=== PATIENT | female | born 1945 | race Caucasian/White ===

== ENCOUNTER 2020-04-26 12:27 | Outpatient (REF) | payer MEDICARE, SELFPAY | END 2020-04-26 12:28 | disposition home or self-care (01) | LOC: HO.LAB 12:27 | PROVIDERS: PCP Internal Medicine; Visit Provider Internal Medicine | DX: Z20.828 Contact with and (suspected) exposure to other viral communicable diseases (principal) | CPT/HCPCS: C9803; U0003 ==

== ENCOUNTER 2022-04-11 09:48 | Outpatient (REF) | payer MEDICARE, SELFPAY ==
[2022-04-11 10:36] LABS: COVID-19 Test Negative (Negative); IDNOW Serial# 16C4AD1C
== END 2022-04-11 09:49 | disposition home or self-care (01) ==
LOC: HO.LAB 09:48
PROVIDERS: Visit Provider Internal Medicine
DX: Z20.822 Contact with and (suspected) exposure to COVID-19 (principal)
CPT/HCPCS: 87635; C9803

== ENCOUNTER 2023-03-18 12:26 | Outpatient (AMB) | payer MEDICARE, SELFPAY ==
--- NOTE | 2023-03-18 12:31 | AM.OFFWIN_ITS ---
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 Intake Note: pt is here for c/o cuts/scrapes on arm/forhead due to fall this morning Patient Tobacco Use Status: Never used Tobacco Allergies No Known Allergies Allergy (Verified 03/18/23 12:54) Medication List - Last Reconciled 03/18/23 by Damian Blackwell MD atorvastatin 40 mg PO DAILY fluticasone furoate-vilanterol 100-25 mcg/dose (Breo Ellipta) 1 ea inhalation DAILY gabapentin 300 mg PO TID hydrochlorothiazide 25 mg PO DAILY lisinopril 30 mg PO DAILY metoprolol tartrate 25 mg PO BID HPI 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 While walking to her shed at home, patient tripped and fell. In the process she has injured her right forearm, left and and has a bruise on the right side of her head. No loss of consciousness. Patient could get up on her own. She is ambulating without assistance. No history of double vision. No nausea or vomiting. PFSH Social History Patient Tobacco Use Status: Never used Tobacco Physical Exam Vital Signs: Last Vital Signs Temp 97.1 F 03/18/23 12:41 Pulse 69 03/18/23 12:41 BP 110/70 03/18/23 12:41 Pulse Ox 98 03/18/23 12:41 Const General: cooperative and healthy appearing Nutritional Appearance: well nourished Orientation/consciousness: patient oriented x3 Limitations: no limitations HEENT Head: Yes normal to inspection Eyes General: appearance normal, both eyes and all related structures Neck Neck: Yes normal visual inspection Chest Chest palpation & inspection: normal palpation of entire chest wall Resp Effort & Inspection: normal respiratory effort Skin Other: Skin: Superficial bruising over the forehead. Right forearm 4 cm wound with peeling of thin skin. Similar for wound on the left hand dorsally. Minimal abrasions over the right and left knee. Neuro General: patient oriented x3 Assessment & Plan Assessment & Plan (1) Head contusion: Code(s): S00.93XA - Contusion of unspecified part of head, initial encounter Plan: Tetanus shot provided. Superficial wounds were covered with antiseptic dressing. CT scan of the head has been scheduled. Orders: Orders CT head/brain wo IV con Today S00.93XA - Contusion of unspecified part of head, initial encounter Coding Level of Care Code New Pt Level 4 (34313) Diagnoses Head contusion S00.93XA
[2023-03-18 12:41] VITALS: BP 110/70; PULSE 69; TEMP 36.2; O2SAT 98
== END 2023-03-18 13:12 | disposition home or self-care (01) ==
PROVIDERS: PCP Internal Medicine; Visit Provider Internal Medicine
DX: S00.93XA Contusion of unspecified part of head, initial encounter (principal); Z23 Encounter for immunization
CPT/HCPCS: 90471; 90715; 99204

== ENCOUNTER 2023-03-20 15:03 | Outpatient (REF) | payer MEDICARE, SELFPAY ==
--- NOTE | ~2023-03-20 | CT_ITS ---
EXAMINATION: CT HEAD WITHOUT CONTRAST CLINICAL INFORMATION: Contusion of unspecified part of the head. COMPARISON: None available. TECHNIQUE: Contiguous axial imaging was performed from the skull base to vertex without intravenous administration of contrast. This CT examination was performed using dose optimization techniques as appropriate, variously including the following: *Automated exposure control *Adjustment of mA and/or kV according to patient size (this includes techniques or standardized protocols for targeted exams where dose is matched to indication/reason for exam; i.e. extremities or head) *Use of iterative reconstruction technique DLP: 691.0 mGy-cm FINDINGS: There is ill-defined patchy hypodensity involving the left middle frontal gyrus at the mancia-white matter intersection. Otherwise, no acute intracranial hemorrhage. The mancia-white matter differentiation is otherwise preserved. No midline shift or hydrocephalus. No acute extra-axial fluid collections. The orbital osseous structures are unremarkable. No orbital pathology. The paranasal sinuses and mastoid air cells are clear. Atherosclerotic calcifications of the bilateral carotid siphons. CT/CT head/brain wo IV con IMPRESSION: Nonspecific ill-defined patchy hypodensity in the left middle frontal gyrus. Differential considerations include edema, acute infarct, and contusion/axonal injury among others. Further evaluation with MRI brain is recommended.
== END 2023-03-20 15:04 | disposition home or self-care (01) ==
LOC: HO.CT 15:03
PROVIDERS: PCP Internal Medicine; Visit Provider Internal Medicine
DX: S00.93XA Contusion of unspecified part of head, initial encounter (principal)
CPT/HCPCS: 70450

== ENCOUNTER 2023-03-31 10:59 | Outpatient (AMB) | payer MEDICARE, SELFPAY ==
--- NOTE | 2023-03-31 12:32 | MHC.OFFWIV ---
Intake Vital Signs 03/31/23 12:33 Weight 148 lb BP 110/60 Blood Pressure Location Rt brachial Position Sitting Pulse 64 Pulse Source Pulse Oximeter Pulse Oximetry (%) 98 Oxygen Delivery Method Room Air Intake Visit Reasons: EST/right leg cat scratch(lobby) Intake Note: Patient here because she was scratched by a cat on friday on the right leg and wants to make sure its not infected. Patient Tobacco Use Status: Never used Tobacco Allergies No Known Allergies Allergy (Verified 03/31/23 12:53) Medication List - Last Reconciled 03/31/23 by Damian Blackwell MD atorvastatin 40 mg PO DAILY fluticasone furoate-vilanterol 100-25 mcg/dose (Breo Ellipta) 1 ea inhalation DAILY gabapentin 300 mg PO TID hydrochlorothiazide 25 mg PO DAILY lisinopril 30 mg PO DAILY meloxicam 15 mg PO DAILY metoprolol tartrate 25 mg PO BID tramadol 50 mg PO BEDTIME Do you need a note to return to daycare/school/sports/work: No HPI EST/right leg cat scratch(lobby) HPI Details 78-year-old female presents to the office for a sick visit. Her own cat jumped on her a few days ago and scratched her right leg. She had significant bleeding. [facility] Social History Patient Tobacco Use Status: Never used Tobacco Physical Exam Vital Signs: Last Vital Signs Pulse 64 03/31/23 12:33 BP 110/60 03/31/23 12:33 Pulse Ox 98 03/31/23 12:33 Oxygen Delivery Method Room Air 03/31/23 12:33 Skin Other: Multiple abrasions over the right leg. They appear healing with minimal tenderness. Assessment & Plan Assessment & Plan (1) Cat scratch: Code(s): W55.03XA - Scratched by cat, initial encounter Plan: Up-to-date on tetanus. Antibiotics called in. If symptoms do not improve to follow-up here. Coding Level of Care Code Est Pt Level 3 (74723) Diagnoses Cat scratch W55.03XA
[2023-03-31 12:33] VITALS: BP 110/60; PULSE 64; O2SAT 98
== END 2023-03-31 13:05 | disposition home or self-care (01) ==
PROVIDERS: PCP Internal Medicine; Visit Provider Internal Medicine
DX: S80.811A Abrasion, right lower leg, initial encounter (principal); W55.03XA Scratched by cat, initial encounter
CPT/HCPCS: 99213

== ENCOUNTER 2023-08-09 09:13 | Outpatient (REF) | payer MEDICARE, SELFPAY ==
[2023-08-09 11:58] LABS: C Reactive Protein 0.27 mg/dL (< or = 0.50); Uric Acid 8.1 mg/dL (2.4-5.7)
[2023-08-09 12:25] LABS: Erythrocyte Sedimentation Rate 23 MM/HR (0-20)
== END 2023-08-09 09:14 | disposition home or self-care (01) ==
LOC: HO.HMGCLDS 09:13
PROVIDERS: PCP Internal Medicine; Visit Provider Podiatrist
DX: M10.072 Idiopathic gout, left ankle and foot (principal)
CPT/HCPCS: 36415; 84550; 85652; 86140

== ENCOUNTER 2023-11-28 12:41 | Emergency (ER) | payer OTHER, MEDICARE, SELFPAY ==
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
--- NOTE | ~2023-11-28 | CT_ITS ---
EXAMINATION: CT CERVICAL SPINE WITHOUT CONTRAST CLINICAL INFORMATION: Neck tenderness. Rule out fracture. COMPARISON: None available. TECHNIQUE: Axial images through the cervical spine without IV contrast. Sagittal and coronal reconstructions on the technologist workstation. This CT examination was performed using dose optimization techniques as appropriate, variously including the following: *Automated exposure control *Adjustment of mA and/or kV according to patient size (this includes techniques or standardized protocols for targeted exams where dose is matched to indication/reason for exam; i.e. extremities or head) *Use of iterative reconstruction technique DLP: 376 mGy-cm FINDINGS: Bone alignment is normal. No fracture or dislocation. Multilevel degenerative changes with degenerative spondylosis and degenerative disc disease greatest at C4-C5, C5-C6 and C6-C7. Prevertebral soft tissues are normal. There is bilateral carotid calcification. Visualization of the lung apices is limited due to motion artifact. There is mild biapical pleural and parenchymal scarring. There is semisolid nodular opacity at the right lung apex measuring 5 mm for example axial image 44 series 15. This appears similar to chest CT from 2021. There is severe calcific atherosclerotic disease of the visualized thoracic aorta. CT/CT cervical spine wo IV con IMPRESSION: Degenerative changes. No fracture or dislocation. Fleischner guidelines were followed.
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
[2023-11-28 12:55] VITALS: BP 110/80; PULSE 88; O2SAT 98
[2023-11-28 13:03] VITALS: BP 152/80; PULSE 94; RESP 18; TEMP 36.9; O2SAT 94; BMI 33.6
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
--- NOTE | 2023-11-28 15:33 | PC.NURSE ---
Pt refuses pain meds, reports pain has subsided and she does not want anything at this time.
[2023-11-28 15:44] VITALS: BP 145/54; PULSE 78; RESP 16; TEMP 36.6; O2SAT 97
[2023-11-28 16:20] VITALS: BP 145/54; PULSE 78; RESP 16; TEMP 36.6; O2SAT 97
== END 2023-11-28 16:21 | disposition home or self-care (01) ==
PROVIDERS: Emergency Provider Emergency Medicine Emergency Medical Services; PCP Internal Medicine
DX: S00.03XA Contusion of scalp, initial encounter (principal); S13.9XXA Sprain of joints and ligaments of unspecified parts of neck, initial encounter; S00.83XA Contusion of other part of head, initial encounter; M54.2 Cervicalgia; R51.9 Headache, unspecified; V43.52XA Car driver injured in collision with other type car in traffic accident, initial encounter; Y93.9 Activity, unspecified; Y92.410 Unspecified street and highway as the place of occurrence of the external cause; Y99.8 Other external cause status
CPT/HCPCS: 70450; 70486; 72125; 99284

== ENCOUNTER 2023-12-01 16:00 | Outpatient (AMB) | payer OTHER, MEDICARE, SELFPAY ==
[2023-12-01 16:04] VITALS: BP 132/80; PULSE 82; TEMP 36.7; O2SAT 98
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
== END 2023-12-01 16:38 | disposition home or self-care (01) ==
PROVIDERS: PCP Internal Medicine; Visit Provider Registered Nurse Emergency
DX: S13.4XXA Sprain of ligaments of cervical spine, initial encounter (principal)
CPT/HCPCS: 99213

== ENCOUNTER 2024-04-29 11:20 | Observation (INO) | payer MEDICARE, SELFPAY ==
[2024-04-29] VITALS (7 sets, daily range): BP systolic 135–186; BP diastolic 52–97; PULSE 66–92; RESP 15–20; TEMP 36.5–36.8; O2SAT 96–99; BMI 33.4
--- NOTE | ~2024-04-29 | CT_ITS ---
CT HEAD WITHOUT IV CONTRAST STROKE CLINICAL INFORMATION: Acute confusion COMPARISON: No prior CT scan available for comparison. TECHNIQUE: Department standard protocol. This CT examination was performed using dose optimization techniques as appropriate, variously including the following: *Automated exposure control *Adjustment of mA and/or kV according to patient size (this includes techniques or standardized protocols for targeted exams where dose is matched to indication/reason for exam; i.e. extremities or head) *Use of iterative reconstruction technique DLP: 580 mGy-cm FINDINGS: CEREBRAL HEMISPHERES: There is area of low attenuation likely sequela of an infarct in the anterior left parietal lobe, refer image 28 series 2, indeterminant age. The age of this infarct cannot be determined by MRI if clinically indicated. No associated intracranial bleed. BRAIN PARENCHYMA: Normal mancia-white matter differentiation. SUBDURAL SPACE: No bleed. BASAL GANGLIA AND PINEAL GLAND: Unremarkable VENTRICLES: Symmetric and normal in size. CEREBELLUM AND BRAINSTEM: No space-occupying mass, hemorrhage or acute infarct. CEREBELLOPONTINE ANGLES: No lesion found. ORBITS: No intraorbital mass. VESSELS: Unremarkable SKULL BASE: Unremarkable INCLUDED SINUSES AT SKULL BASE: Clear SKULL AND SKIN: No fracture or bone lesion found. CT/CT head for stroke IMPRESSION: There is area of low attenuation likely sequela of an infarct in the anterior left parietal lobe, indeterminant age. The age of this infarct cannot be determined by MRI No associated intracranial bleed. No intracranial bleed. (Referring physician staff is being called, by physician staff assistance, to be alerted of the above critical findings and recommendations.) 05/01/2024 2:55 PM [employer] Electronically signed by: Williams Jones MD 05/01/2024 02:57 PM [facility]
--- NOTE | ~2024-04-29 | CT_ITS ---
EXAMINATION: CT ABDOMEN AND PELVIS WITH CONTRAST CLINICAL INFORMATION: Diffuse abdominal pain. Concern for bowel obstruction. COMPARISON: CT abdomen pelvis dated 05/26/2013. TECHNIQUE: Multidetector volumetric images were obtained from the superior aspect of the liver through the pubic symphysis following administration 85 mL of Omnipaque 350 intravenous contrast. Sagittal and coronal reformatted images were obtained on the technologist's workstation. Oral contrast: No This CT examination was performed using dose optimization techniques as appropriate, variously including the following: *Automated exposure control *Adjustment of mA and/or kV according to patient size (this includes techniques or standardized protocols for targeted exams where dose is matched to indication/reason for exam; i.e. extremities or head) *Use of iterative reconstruction technique DLP: 563 mGy-cm FINDINGS: LUNG BASES: There is scarring versus dependent atelectasis at the right lung base. No pleural effusion. Heart size is normal. No pericardial effusion. LIVER, GALLBLADDER, AND BILIARY TREE: The liver is normal in size, shape, and attenuation. No focal hepatic lesion or biliary ductal dilatation is present. The gallbladder is unremarkable with no evidence of radiopaque gallstones, gallbladder wall thickening, or obvious pericholecystic inflammatory changes. PANCREAS: Unremarkable. SPLEEN: Unremarkable. ADRENAL GLANDS: Unremarkable. KIDNEYS AND URETERS: The kidneys are normal in size, shape, and attenuation. No hydronephrosis or hydroureter. There is a 1.7 mm calculus within the lower pole of the right kidney. There is an 8 mm low-attenuation lesion within the left kidney, likely a cyst. There is nonspecific, mild bilateral perinephric stranding. BLADDER: Unremarkable. GASTROINTESTINAL TRACT: There is a small hiatal hernia. The small and large bowel are normal in caliber. There is sigmoid colon diverticulosis. There is no pericolonic inflammatory stranding. The appendix is unremarkable. There is no free fluid within the abdomen. ABDOMINAL WALL: No significant hernia is appreciated. LYMPH NODES: No lymphadenopathy. VASCULAR: No abdominal aortic aneurysm. There is extensive calcific atherosclerotic disease throughout the aorta and iliac arteries. PELVIC VISCERA: Unremarkable. OSSEOUS STRUCTURES: There are significant degenerative changes of the lumbar spine. CT/CT abdomen pelvis w IV con IMPRESSION: No acute intra-abdominal/intrapelvic abnormality. Nonobstructive right renal calculus. No evidence of bowel obstruction. Sigmoid colon diverticulosis. Fleischner guidelines were followed. Electronically signed by: Tien Hess DO 04/29/2024 04:38 PM [facility]
--- NOTE | ~2024-04-29 | XR_ITS ---
EXAMINATION: XR CHEST CLINICAL INFORMATION: Chest pain. COMPARISON: None available. TECHNIQUE: 2 views of the chest were obtained. FINDINGS: Pulmonary reticular pattern, bilaterally. No hyperinflation. No consolidation, pleural effusion or pneumothorax. Cardiomediastinal silhouette demonstrates calcified plaque aortic arch. Multilevel thoracic spondylosis. XR/XR chest 2V IMPRESSION: Chronic interstitial lung disease. Electronically signed by: Paulo Hills MD 04/29/2024 12:35 PM EST
--- NOTE | ~2024-04-29 | CT_ITS ---
EXAMINATION: CTA NECK WITH CONTRAST (STROKE) CTA BRAIN WITH CONTRAST (STROKE) CLINICAL INFORMATION: Suspect acute stroke. Assess for major vessel occlusion. COMPARISON: Concurrently performed head CT TECHNIQUE: CTA of the head and neck was performed in the axial plane from the mediastinum to the skull vertex using 70 mL Omnipaque 350 intravenous contrast. Additional reformatted multiplanar images including maximum intensity projection MIP images are generated on the CT workstation. This CT examination was performed using dose optimization techniques as appropriate, variously including the following: *Automated exposure control *Adjustment of mA and/or kV according to patient size (this includes techniques or standardized protocols for targeted exams where dose is matched to indication/reason for exam; i.e. extremities or head) *Use of iterative reconstruction technique DLP: 1297 mGy-cm FINDINGS: CTA Head: Atherosclerotic calcified plaque is noted involving the cavernous and supraclinoid portions of the internal carotid arteries, without significant stenosis. The anterior and middle cerebral arteries are patent with normal contrast enhancement and branching pattern. There is a normal anterior communicating artery complex. The vertebral and basilar arteries demonstrate normal enhancement without stenosis or occlusion. The posterior cerebral arteries have a normal caliber and branching pattern. There is a origin of both posterior cerebral arteries, a normal variant. There is no evidence of stenosis, occlusion, aneurysm or arteriovenous malformation. CTA Neck: Severe atherosclerotic plaque is noted at the aortic arch. 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 There is reconstitution at the takeoff of the left vertebral artery. Moderate atheromatous plaque is noted at the right carotid bulb, without significant stenosis by NASCET criteria. The right common, internal and external carotid arteries are otherwise normal in appearance. Mild atheromatous plaque is noted at the left carotid bulb, without significant stenosis by NASCET criteria. The left common, internal and external carotid arteries are otherwise normal in appearance. The cervical portions of the vertebral arteries demonstrate normal enhancement. There is no evidence of a significant stenosis or a dissection. The visualized soft tissues are unremarkable. The visualized lung is unremarkable. The visualized osseous structures are unremarkable. CT/CT angio head neck stroke IMPRESSION: 1. Occlusion of the proximal left subclavian artery with reconstitution at the takeoff of the left vertebral artery. 2. No additional hemodynamically significant stenosis or occlusion of the head or neck vasculature. Electronically signed by: Flaca Mcclelland MD 05/01/2024 03:33 PM EST RP
--- NOTE | ~2024-04-29 | MR_ITS ---
EXAMINATION: MR BRAIN WITHOUT CONTRAST CLINICAL INFORMATION: Acute change in speech COMPARISON: CTA head and neck on 05/01/24 TECHNIQUE: MRI of the brain was obtained using routine sequences without contrast. FINDINGS: There is mild periventricular and subcortical white matter hyperintensity most likely representing microangiopathic disease. Small region of encephalomalacia in the left frontal lobe. There is no focus of restricted diffusion or abnormal susceptibility artifact within the brain parenchyma. The midline structures including the corpus callosum, cerebellar vermis, and pituitary gland are normal in appearance. There is no acute intracranial hemorrhage, mass, mass effect, or extra-axial fluid collection. There is no midline shift or hydrocephalus. The basal subarachnoid cisterns and cerebral sulci are not effaced. The major intracranial flow voids are present, and grossly unremarkable. MR/MR head/brain wo con IMPRESSION: No acute intracranial abnormality. Electronically signed by: Flaca Mcclelland MD 05/02/2024 08:59 AM [facility]
--- NOTE | ~2024-04-29 | CT_ITS ---
EXAMINATION: CT ANGIOGRAM CHEST CLINICAL INFORMATION: Cough. Rule out PE. COMPARISON: Chest CT dated February 19, 2023. TECHNIQUE: Multiple axial images were obtained through the chest after the administration of 85 mL of Omnipaque 350 intravenous contrast. Extensive vascular post-processing including two-dimensional and three-dimensional reformatted images were created and reviewed on an independent workstation. This CT examination was performed using dose optimization techniques as appropriate, variously including the following: *Automated exposure control *Adjustment of mA and/or kV according to patient size (this includes techniques or standardized protocols for targeted exams where dose is matched to indication/reason for exam; i.e. extremities or head) *Use of iterative reconstruction technique DLP: 373 mGy-cm FINDINGS: The main pulmonary artery is normal in caliber. There are no filling defects within the main pulmonary artery, left pulmonary artery, right pulmonary artery, or lobar pulmonary arteries to indicate an acute pulmonary embolism. Segmental and subsegmental branches are suboptimally evaluated secondary to mixing artifact. The trachea and central airways are widely patent. There is no consolidation within either lung. There is scarring versus atelectasis at the right lung base. There is no pleural effusion. No pneumothorax. The heart is normal in size. There is no pericardial effusion. There are coronary artery calcifications. There is no thoracic aortic aneurysm. There is calcific atherosclerotic disease of the aorta. There is no mediastinal or hilar adenopathy. There is no axillary lymphadenopathy. There is a small hiatal hernia. Remaining visualized upper abdominal structures are normal in appearance. There are degenerative changes of the thoracic spine. CT/CT angio chest PE protocol IMPRESSION: No pulmonary embolism is identified. No consolidation within either lung. No pleural effusion or pneumothorax. Fleischner guidelines were followed. Electronically signed by: Tien Hess DO 04/29/2024 04:57 PM EST
--- NOTE | 2024-04-29 11:30 | ED.GENADULT ---
HPI - General Adult General Chief complaint: Weakness Stated complaint: Pneumonia, abd pain Time Seen by Provider: 04/29/24 14:20 Source: patient Mode of arrival: ambulatory Limitations: no limitations History of Present Illness ED Provider: TAMIKO LUA PA-C HPI narrative: 79 year old female with pmhx significant for HTN, HDL, arthritis presents to the ED today for evaluation of multiple concerns. Patient was initially evaluated at [facility] 4 days ago for right lower abdominal pain. She was found to have a blockage and was discharged home same day with cefuroxime. Later that evening, she began to develop nausea and vomiting. Reports her emesis appears coffee-ground like. Last episode of vomiting was 2 days ago. Reports that after starting the cefuroxime, she began to develop multiple episodes of diarrhea. Her stool is dark in color which is not her normal. Denies iron supplementation or Pepto-Bismol use. Not on anticoagulation however does take a baby aspirin daily. She was evaluated at [facility] again 2 days ago for evaluation of persistent cough x3 days. No sputum production. Reports associated chest discomfort that has constant. Admits she is very sedentary during the day. Denies recent travel or long car rides. Denies hemoptysis. Denies palpitations. She was diagnosed with pneumonia via CXR and discharged home with zoran. Presents today with continued cough, chest discomfort, nausea, diarrhea and abdominal pain. No further episodes of vomiting. Related Data Home Medications ?Medication ?Instructions ?Recorded ?Confirmed atorvastatin 40 mg tablet 40 mg PO DAILY 03/18/23 04/29/24 gabapentin 300 mg capsule 600 mg PO BEDTIME 03/18/23 04/29/24 metoprolol tartrate 25 mg tablet 25 mg PO BID 03/18/23 04/29/24 aspirin 81 mg tablet,delayed 81 mg PO MOWEFR 12/01/23 04/29/24 release lisinopril 10 1 tab PO DAILY 12/01/23 04/29/24 mg-hydrochlorothiazide 12.5 mg tablet acetaminophen 325 mg tablet 650 mg PO DAILY PRN Pain 04/29/24 04/29/24 albuterol sulfate 90 mcg/actuation 1 inh inhalation QID PRN Shortness 04/29/24 04/29/24 aerosol inhaler (Ventolin HFA) Of Breath Or Wheezing azithromycin 250 mg tablet 250 mg PO DIRECTED 04/29/24 04/29/24 cefpodoxime 100 mg tablet 100 mg PO BID 04/29/24 04/29/24 fluticasone furoate 100 1 ea inhalation DAILY 04/29/24 04/29/24 mcg-vilanterol 25 mcg/dose inhalation powder (Breo Ellipta) gabapentin 300 mg capsule 300 mg PO DAILY 04/29/24 04/29/24 methylprednisolone 4 mg tablets in See Rx Instructions .Route .COMPLEX 04/29/24 04/29/24 a dose pack tramadol 50 mg tablet 50 mg PO BID PRN pain 04/29/24 04/29/24 Allergies Allergy/AdvReac Type Severity Reaction Status Date / Time No Known Allergies Allergy Verified 04/29/24 11:33 Review of Systems Review of Systems: Constitutional: No fever, chills, fatigue, night sweats, weight changes ENT/Mouth: No ear pain, hearing loss, nasal congestion, sinus pain, rhinorrhea, sore throat Eyes: No eye pain, swelling, redness, vision changes, discharge Cardio: No chest pain, palpitations, ROMO, orthopnea, peripheral edema Pulm: No SOB, cough, sputum, wheezing, dyspnea, hemoptysis, +cough GI: No hematemesis, constipation, hematochezia, +melena, +diarrhea, +coffee ground emesis : No irregular bleeding, dysuria, frequency, urgency, hesitancy, hematuria, flank pain, urinary flow changes, urinary incontinence or retention MSK: No back pain, neck pain, joint pain, myalgias Skin: No lesions, rashes Neuro: No weakness, numbness, paresthesias, LOC, dizziness, headache Psych: No anxiety/panic, depression, SI/HI, AH/VH All other systems reviewed and are negative. [facility] Past Medical History Attestation statement: The following information was validated with the patient. Source: old records reviewed and nursing notes reviewed Social History Social History Patient Tobacco Use Status: Never used Tobacco Smoked in Last 30 Days: Yes Use of substances other than those prescribed or required for medical reasons: No Advance Directives: No Advance Directives Information Provided: Yes Physical Exam ED Vital Signs: Vital Signs - 24 hr 04/29/24 11:30 04/29/24 13:54 04/29/24 14:24 Temperature 98.3 F Pulse Rate 92 82 66 Respiratory Rate 20 16 15 Blood Pressure 172/74 H 185/97 H 186/53 H Pulse Oximetry 98 99 97 Oxygen Delivery Method Room Air Room Air Room Air 04/29/24 15:57 04/29/24 18:28 04/29/24 20:08 Temperature 97.7 F Pulse Rate 72 81 91 Respiratory Rate 16 18 17 Blood Pressure 135/54 L 174/52 H 138/67 Pulse Oximetry 97 96 97 Oxygen Delivery Method Room Air Room Air Room Air BMI result Body Mass Index 33.4 vital signs stable General: Well appearing, in no acute distress. Skin: Warm, dry, intact. No rashes or lesions. Head: Normocephalic, atraumatic. EENT: Hearing is intact b/l. Conjunctiva clear. PERRLA. EOM intact. Moist mucous membranes.? Neck: Supple without LAD? Cardiac: Chest wall symmetric. RRR Lungs: Normal respiratory effort without accessory muscle use. CTA bilaterally. No rales, rhonchi, or wheezes.? Abdomen: abdomen soft, nondistended, TTP of epigastric region with voluntary guarding. no rebound tenderness. normoactive bs x4. Rectal exam performed with Blaire RAMESH present in room to test design engineer. Normal rectal sphincter tone. No external masses or lesions. Palpable soft stool in rectal vault. Stool is dark in appearance. OBS positive. Back: No midline spinous or paraspinal tenderness. No step off deformity. Ext: Upper and lower extremities atraumatic, without tenderness, deformity, swelling or erythema. Full ROM throughout. Neuro: AOx3. Normal speech. Ambulating with steady gait. Psych: Appropriate mood and affect. Responds appropriately to questions. Course Course Course Narrative: This is an RME: Additional HPI, ROS, PE not included below will be deferred to primary provider. RME assessment and note performed by: Ema Timmons PA-C This is a [id number]-female, with a past medical history of hypertension, hyperlipidemia, arthritis on aspirin, who presents to the ER with complaints of multiple complaints. Patient states that on FridayApril 25, patient was seen at [facility] after having a ?blockage?, she states that she was discharged on laxatives that same day. She states that later on that evening she developed vomiting. She states that there were episodes that were coffee-ground like in appearance. She states that she was then seen on [facility] again on Friday as she was not feeling well, and she was diagnosed with pneumonia. She was discharged on 2 types of antibiotics which she has been taking however notes no improvement. She reports that she is now having diarrhea. She has not had any episodes of coffee-ground vomit since Friday. She is not on anticoagulation, she does admit to taking a baby aspirin daily. Plan: Labs, EKG, chest x-ray, further ER evaluation needed. Reevaluation(s) Reevaluation #1: 1426 -- CBC with leukocytosis to 15.8 without left shift. This may be secondary to vomiting. Chemistry without acute electrolyte abnormality requiring intervention. BUN elevated at 31. Creatinine WNL. Random glucose 124. Normal liver function. Troponin elevated at 52.8 > no history of VA. Will repeat for delta to r/o ACS. EKG showing normal sinus rhythm with a rate of 78 beats per minute, no acute ischemic changes or ST elevations. BNP WNL. Chest x-ray showing chronic interstitial lung disease. No effusion, infiltrate or consolidation. No pneumothorax. > OBS, CT abd, and CTA chest pending. Medications Administered Discontinued Medications Generic Name Dose Route Start Last Admin Trade Name Freq PRN Reason Stop Dose Admin Iohexol 85 ml 04/29/24 15:12 04/29/24 15:12 Iohexol 350 Mg/Ml 100 Ml Infus..Btl IV 04/29/24 15:13 85 ml ONCE ONE Administration Pantoprazole Sodium 40 mg 04/29/24 14:44 04/29/24 14:55 Pantoprazole Sodium 40 Mg/10 Ml Vial IVPUSH 04/29/24 14:45 40 mg ONCE ONE Administration Medical Decision Making Medical Decision Making MDM Narrative: 79 year old female with pmhx significant for HTN, HDL, arthritis presents to the ED today for evaluation of multiple concerns. Vital signs stable. afebrile. she is not hypoxic, not tachycardic. she is nontoxic appearing and in NAD. holding emesis bag, no active vomiting. abdomen is soft, nondistended, ttp of epigastric region with voluntary guarding, no rebound. normoactive bs x4. Normal rectal sphincter tone. No external masses or lesions. Palpable soft stool in rectal vault. Stool is dark in appearance. OBS positive. no CVAT. skin w/d/i. no increased effort of breathing. no tripoding. bronchospastic cough. lungs are clear. Differential diagnosis includes gastritis, PUD, diverticulitis vs diverticulosis, colitis, SBO, ileus. Concern for viral syndrome, pneumonia, ACS, arrhtyhmia, PE. Labs, viral serology, OBS, CXR, ekg ordered from triage. PERC 1 > given elevated troponin, will at on CTA chest to r/o PE and CT abd/pelvis to assess for bleed vs obstruction. Differential Diagnosis Differential Diagnoses: The differential diagnosis associated with the presentation includes as above Admission/Observation Consideration of admission/observation: Escalation of care including admission/observation considered Patient to bed admitted to medicine for GI bleed Consult Healthcare Provider Management of the patient was discussed with: Hospitalist (Dr. Clarke) Lab Data MDM Lab Attestation statement: I reviewed the patient's lab results. as above 04/29/24 12:02 04/29/24 12:02 Labs: Lab Results 04/29/24 04/29/24 Range/Units 12:02 14:48 WBC 15.8 H (4.8-10.8) X10*3/uL RBC 5.35 (4.20-5.50) X10*6/uL Hgb 16.0 (12.0-16.0) g/dl Hct 46.4 (37.0-47.0) % MCV 86.7 (80.0-98.0) fL MCH 29.9 (27.0-33.0) pg MCHC 34.5 (31.0-35.0) g/dl RDW 12.7 (11.0-16.0) % Plt Count 278 (160-400) X10*3/uL MPV 10.3 (9.4-12.3) fL Immature Gran % (Auto) 0.6 H (0.0-0.4) % Neut % (Auto) 78.5 H (45-73) % Lymph % (Auto) 8.0 L (20-40) % Baker % (Auto) 12.2 H (2-11) % Eos % (Auto) 0.3 (0-4) % Baso % (Auto) 0.4 (0-2) % Lymph # (Auto) 1.3 (1.2-4.9) X10*3/uL Baker # (Auto) 1.9 H (0.1-1.2) X10*3/uL Eos # (Auto) 0.0 (0.0-0.4) X10*3/uL Baso # (Auto) 0.1 (0.0-0.2) X10*3/uL Abs Immat Gran (auto) 0.10 H (0.00-0.03) X10*3/uL Absolute Neuts (auto) 12.4 H (2.0-8.3) x10*3/uL Absolute Nucleated RBC 0.000 (0.0-0.012) X10*3/uL Nucleated RBC % (auto) 0.0 (0.0-0.2) /100WBC Smear Tech's Comments VERIFIED PT 10.9 (10.9-12.4) SEC INR 0.9 (0.9-1.1) Hold Blue Top SEE NOTE Sodium 137 (135-145) mmol/L Potassium 3.5 (3.3-5.1) mmol/L Chloride 100 (96-108) mmol/L Carbon Dioxide 26 (22-29) mmol/L Anion Gap 15 (12-20) BUN 31 H (9-16) mg/dL Creatinine 0.90 (0.5-1.4) mg/dL Estim Creat Clear Calc 40.3 Estimated GFR > 60 Random Glucose 124 H (60-115) mg/dL Calcium 10.4 H (8.4-10.2) mg/dL Magnesium 2.3 (1.6-2.6) mg/dL Total Bilirubin 0.7 (0.0-1.0) mg/dL Direct Bilirubin 0.3 (0.0-0.5) mg/dL AST 28 (5-31) U/L ALT 18 (0-31) U/L Alkaline Phosphatase 79 (39-117) U/L Troponin I High Sens 52.8 H* 62.2 H* (<3.5-17.0) ng/L B-Natriuretic Peptide 79 (<100) pg/mL Total Protein 7.2 (6.5-8.0) g/dL Albumin 4.1 (3.5-5.0) g/dL Lipase 15 (8-78) U/L Stool Occult Blood POSITIVE (NEGATIVE) Influenza Type A (PCR) NEGATIVE (Negative) Influenza Type B (PCR) NEGATIVE (Negative) RSV RNA Qual (PCR) NEGATIVE (Negative) SARS-CoV-2 RNA (RT-PCR) NEGATIVE (Negative) Independent Interpretation I performed an independent interpretation of an: EKG, Plain X-Ray and CT Scan Interpretation: CT angio chest without PE CT abdomen without obstruction CXR without focal infiltrate or consolidation EKG with NSR, rate 78 bpm, no acute ischemic changes or ST elevations Radiology Impression Discussion of test interpretation with radiology: I have reviewed the radiologist's reading. Radiologist Impression: EXAMINATION: XR CHEST CLINICAL INFORMATION: Chest pain. COMPARISON: None available. TECHNIQUE: 2 views of the chest were obtained. FINDINGS: Pulmonary reticular pattern, bilaterally. No hyperinflation. No consolidation, pleural effusion or pneumothorax. Cardiomediastinal silhouette demonstrates calcified plaque aortic arch. Multilevel thoracic spondylosis. XR/XR chest 2V IMPRESSION: Chronic interstitial lung disease. Electronically signed by: Paulo Hills MD 04/29/2024 12:35 PM [facility] EXAMINATION: CT ANGIOGRAM CHEST CLINICAL INFORMATION: Cough. Rule out PE. COMPARISON: Chest CT dated February 19, 2023. TECHNIQUE: Multiple axial images were obtained through the chest after the administration of 85 mL of Omnipaque 350 intravenous contrast. Extensive vascular post-processing including two-dimensional and three-dimensional reformatted images were created and reviewed on an independent workstation. This CT examination was performed using dose optimization techniques as appropriate, variously including the following: *Automated exposure control *Adjustment of mA and/or kV according to patient size (this includes techniques or standardized protocols for targeted exams where dose is matched to indication/reason for exam; i.e. extremities or head) *Use of iterative reconstruction technique DLP: 373 mGy-cm FINDINGS: The main pulmonary artery is normal in caliber. There are no filling defects within the main pulmonary artery, left pulmonary artery, right pulmonary artery, or lobar pulmonary arteries to indicate an acute pulmonary embolism. Segmental and subsegmental branches are suboptimally evaluated secondary to mixing artifact. The trachea and central airways are widely patent. There is no consolidation within either lung. There is scarring versus atelectasis at the right lung base. There is no pleural effusion. No pneumothorax. The heart is normal in size. There is no pericardial effusion. There are coronary artery calcifications. There is no thoracic aortic aneurysm. There is calcific atherosclerotic disease of the aorta. There is no mediastinal or hilar adenopathy. There is no axillary lymphadenopathy. There is a small hiatal hernia. Remaining visualized upper abdominal structures are normal in appearance. There are degenerative changes of the thoracic spine. CT/CT angio chest PE protocol IMPRESSION: No pulmonary embolism is identified. No consolidation within either lung. No pleural effusion or pneumothorax. Fleischner guidelines were followed. Electronically signed by: Tien Hess DO 04/29/2024 04:57 PM [facility] EXAMINATION: CT ABDOMEN AND PELVIS WITH CONTRAST CLINICAL INFORMATION: Diffuse abdominal pain. Concern for bowel obstruction. COMPARISON: CT abdomen pelvis dated 05/26/2013. TECHNIQUE: Multidetector volumetric images were obtained from the superior aspect of the liver through the pubic symphysis following administration 85 mL of Omnipaque 350 intravenous contrast. Sagittal and coronal reformatted images were obtained on the technologist's workstation. Oral contrast: No This CT examination was performed using dose optimization techniques as appropriate, variously including the following: *Automated exposure control *Adjustment of mA and/or kV according to patient size (this includes techniques or standardized protocols for targeted exams where dose is matched to indication/reason for exam; i.e. extremities or head) *Use of iterative reconstruction technique DLP: 563 mGy-cm FINDINGS: LUNG BASES: There is scarring versus dependent atelectasis at the right lung base. No pleural effusion. Heart size is normal. No pericardial effusion. LIVER, GALLBLADDER, AND BILIARY TREE: The liver is normal in size, shape, and attenuation. No focal hepatic lesion or biliary ductal dilatation is present. The gallbladder is unremarkable with no evidence of radiopaque gallstones, gallbladder wall thickening, or obvious pericholecystic inflammatory changes. PANCREAS: Unremarkable. SPLEEN: Unremarkable. ADRENAL GLANDS: Unremarkable. KIDNEYS AND URETERS: The kidneys are normal in size, shape, and attenuation. No hydronephrosis or hydroureter. There is a 1.7 mm calculus within the lower pole of the right kidney. There is an 8 mm low-attenuation lesion within the left kidney, likely a cyst. There is nonspecific, mild bilateral perinephric stranding. BLADDER: Unremarkable. GASTROINTESTINAL TRACT: There is a small hiatal hernia. The small and large bowel are normal in caliber. There is sigmoid colon diverticulosis. There is no pericolonic inflammatory stranding. The appendix is unremarkable. There is no free fluid within the abdomen. ABDOMINAL WALL: No significant hernia is appreciated. LYMPH NODES: No lymphadenopathy. VASCULAR: No abdominal aortic aneurysm. There is extensive calcific atherosclerotic disease throughout the aorta and iliac arteries. PELVIC VISCERA: Unremarkable. OSSEOUS STRUCTURES: There are significant degenerative changes of the lumbar spine. CT/CT abdomen pelvis w IV con IMPRESSION: No acute intra-abdominal/intrapelvic abnormality. Nonobstructive right renal calculus. No evidence of bowel obstruction. Sigmoid colon diverticulosis. Fleischner guidelines were followed. Electronically signed by: Tien Hess DO 04/29/2024 04:38 PM EST Independent Historian Clinical information obtained from an independent historian. History obtained from or confirmed by: Other (daughters) External Record Review External record reviewed: Inpatient record Prescription Management I considered prescription management with: Other (protonix) Chronic Conditions Patient?s care impacted by: Hypertension Social Determinants Patient?s care significantly limited by Social Determinants of Health including: Other Social Determinant of Health Critical Care Time Critical Care Time Critical Care Time: Yes Total Critical Care Time: 50 Attestation: Critical care time in the amount of 50 minutes has been provided to the patient in terms of direct patient care, frequent reevaluation, consultation with hospitalist, review and interpretation of medical data and results, and management of potentially life-threatening conditions. This is all outside of any medical procedures. Discharge Plan Discharge Clinical Impression: Acute GI bleeding, Diverticulosis Patient Disposition: Admitted As Inpatient Prescriptions: No Action azithromycin 250 mg tablet 250 mg PO DIRECTED Rx Instructions: End date 05/03/24 cefpodoxime 100 mg tablet 100 mg PO BID Rx Instructions: End date 05/03/24 fluticasone furoate-vilanterol [Breo Ellipta] 100-25 mcg/dose blister with device 1 ea INHALATION DAILY methylprednisolone 4 mg tablets,dose pack See Rx Instructions .ROUTE .COMPLEX Rx Instructions: (patient is on day 2). Take 1 tab before breakfast, and 1 tablet after lunch, and supper, and 2 tablets at bedtime Day 3. Take 1 tablet before breakfast, and 1 tablet after lunch, and 1 tablet after supper, and at bedtime. Day 4. Take 1 tablet before breakfast, 1 tablet after lunch and, at bedtime day 5. Take 1 tablet before breakfast and at bedtime. day 6. Take 1 tablet before breakfast. acetaminophen 325 mg Tablet 650 mg PO DAILY PRN (Reason: Pain) albuterol sulfate [Ventolin HFA] 90 mcg/actuation Hfa Aerosol Inhaler 1 inh INHALATION QID PRN (Reason: Shortness Of Breath Or Wheezing) tramadol 50 mg tablet 50 mg PO BID PRN (Reason: pain) gabapentin 300 mg capsule 300 mg PO DAILY metoprolol tartrate 25 mg tablet 25 mg PO BID gabapentin 300 mg capsule 600 mg PO BEDTIME atorvastatin 40 mg tablet 40 mg PO DAILY lisinopril-hydrochlorothiazide 10-12.5 mg tablet 1 tab PO DAILY aspirin 81 mg tablet,delayed release (DR/EC) 81 mg PO MOWEFR Print Language: Turkish
[2024-04-29 12:13] LABS: Basophils Absolute Auto 0.1 X10*3/uL (0.0-0.2); Basophils Percent Auto 0.4 % (0-2); Eosinophils Percent Auto 0.3 % (0-4); Hematocrit 46.4 % (37.0-47.0); Imm Gran Pct Auto 0.6 % (0.0-0.4); Lymphocytes Absolute Auto 1.3 X10*3/uL (1.2-4.9); MANUAL DIFF FLAG SCAN; Mean Corpuscular HGB Conc 34.5 g/dl (31.0-35.0); Mean Corpuscular Hemoglobin 29.9 pg (27.0-33.0); Mean Corpuscular Volume 86.7 fL (80.0-98.0); Mean Platelet Volume 10.3 fL (9.4-12.3); Monocytes Absolute Auto 1.9 X10*3/uL (0.1-1.2); Monocytes Percent Auto 12.2 % (2-11); Neutrophils Absolute Auto 12.4 x10*3/uL (2.0-8.3); Neutrophils Percent Auto 78.5 % (45-73); Platelet Count 278 X10*3/uL (160-400); Red Blood Count 5.35 X10*6/uL (4.20-5.50); Red Cell Distribution Width 12.7 % (11.0-16.0); SCAN SMEAR FLAG 1; White Blood Count 15.8 X10*3/uL (4.8-10.8)
[2024-04-29 12:20] LABS: INTERNATIONAL NORM RATIO 0.9 (0.9-1.1); Prothrombin Time 10.9 SEC (10.9-12.4)
[2024-04-29 12:29] LABS: Alanine Aminotransferase 18 U/L (0-31); Albumin Level 4.1 g/dL (3.5-5.0); Alkaline Phosphatase 79 U/L (39-117); Anion Gap 15 (12-20); Aspartate Amino Transferase 28 U/L (5-31); Bilirubin Direct 0.3 mg/dL (0.0-0.5); Bilirubin Total 0.7 mg/dL (0.0-1.0); Blood Urea Nitrogen 31 mg/dL (9-16); Calcium 10.4 mg/dL (8.4-10.2); Carbon Dioxide 26 mmol/L (22-29); Chloride 100 mmol/L (96-108); Creatinine Clr Calc Pharmacy 40.3; Estimated Glomerular Filt Rate > 60; Glucose Random 124 mg/dL (60-115); Lipase 15 U/L (8-78); Magnesium 2.3 mg/dL (1.6-2.6); Potassium 3.5 mmol/L (3.3-5.1); Sodium 137 mmol/L (135-145); Total Protein 7.2 g/dL (6.5-8.0)
[2024-04-29 12:34] LABS: Troponin-I High Sensitivity 52.8 ng/L (<3.5-17.0)
--- NOTE | 2024-04-29 12:34 | ECG_ITS ---
Test Reason : WEAKNESS Blood Pressure : / mmHG Vent. Rate : 078 BPM Atrial Rate : 078 BPM P-R Int : 198 ms QRS Dur : 092 ms QT Int : 386 ms P-R-T Axes : 027 -07 029 degrees QTc Int : 440 ms Normal sinus rhythm Moderate voltage criteria for LVH, may be normal variant ( R in aVL , Addison product ) Inferior infarct (cited on or before 29-APR-2024) Cannot rule out Anterior infarct , age undetermined Abnormal ECG When compared with ECG of 10-FEB-2009 07:00, No significant change was found Referred By: Ema Timmons Electronically Signed By:DES NOLASCO MD
[2024-04-29 12:46] LABS: SLIDE REVIEW VERIFIED
[2024-04-29 12:48] LABS: Influenza A PCR NEGATIVE (Negative); Influenza B PCR NEGATIVE (Negative); Resp Syncy Virus RNA Qual PCR NEGATIVE (Negative); SARS COV2 PCR INHOUSE NEGATIVE (Negative)
[2024-04-29 13:34] LABS: B Type Natriuretic Peptide 79 pg/mL (<100)
[2024-04-29] MEDS: Pantoprazole Sodium 40 MG/10 ML VIAL IVPUSH (14:55)
[2024-04-29 14:59] LABS: OBS Int Ctl Valid YES; OBS1 POSITIVE (NEGATIVE)
[2024-04-29] MEDS: iohexoL 350 MG/ML 100 ML INFUS..BTL 85 ML IV (15:12)
[2024-04-29 15:20] LABS: Troponin-I High Sensitivity 62.2 ng/L (<3.5-17.0)
--- NOTE | 2024-04-29 19:13 | PHA.MEDREC ---
Addendum entered by Marly Levy RPh 04/29/24 20:26: Med rec was reviewed by [facility]. Original Note: Pharmacy Consult ? Medication Reconciliation Pharmacy has completed the medication reconciliation. Spoke to patient to confirm med list. Patient had a list of medications and her bottles with her. patient states she takes Asprin 81 mg on Mondays, Friday, and Fridays, she is on azithromycin (z-shana) and Cefpodoxime 100 mg bid ,End date is 05/03/24 patient states she is on day 2 of the Medrol Dosepak 4mg.
--- NOTE | 2024-04-29 20:19 | PM.IMHP ---
History of Present Illness Date of Service: 04/29/24 Attending physician on admission: Diogenes Lopez Chief Complaint: Lower back pain Pt is a 79-year-old female with a PMH significant for HTN, HLD, and COPD who presents to the ED with multiple complaints, though primarily complaining of worsening lower back pain radiating to her belly. Patient reports has been evaluated at [facility] ED twice for similar complaints. On Friday patient reports she could barely get up out of bed due to back pain. Workup there at that time was negative and patient was discharged home. That night patient reports 2 episodes of coffee-ground emesis. Friday morning at 02:00 had an additional episode of coffee-ground emesis. On Friday patient reported worsening back and lower abdominal pain. Returned to [facility] ED where CXR and KUB were taken. Patient was diagnosed with pneumonia and possible impaction, and discharged on cefuroxime, azithromycin, methylprednisolone, and magnesium citrate. On Friday patient began experiencing dark-colored nonbloody diarrhea. Says she ?laid low? on Friday but today presents to the ED again after worsening back and abdominal pain. Has also been experiencing nonproductive cough, chills but no measured fever, 9 and burning substernal pain, and dizziness when lying down for a long period of time. Patient reports a history of gout with a recent history of 2 flares, one 3 months ago and another 2 months ago. Is currently not on any gout preventative measures as patient has yet to see her PCP for follow-up and prescription. Patient reports ambulating on her own usually without assistance. Currently smokes around 6 cigarettes a day. In the ED pt was elevated HR up to 92 and hypertensive up to 185/97. Labs were significant for leukocytosis of 15.8, initial troponin 52.8 with repeat flat at 62.2, and stool positive for occult blood. Stable H&H of 16.0/46.4. No significant electrolyte abnormalities. Renal function WNL. BNP WNL at 79. UA negative for UTI, but positive for amorphous urate crystals. CXR showed chronic interstitial lung disease. CTA of chest showed no pulmonary embolism, consolidation, pleural effusion, or pneumothorax. CT of abdomen and pelvis found no acute intra-abdominal/intrapelvic abnormality, but did show nonobstructive right renal calculus. EKG demonstrated normal sinus rhythm without evidence of significant ST elevations depressions. Pt was treated with IV Protonix. Pt will be admitted to the hospital under observation for treatment and further evaluation of coffee-ground emesis with question of UGIB. Review of Systems Review of Systems: Negative except for that which is stated in the HPI Yes all other systems are reviewed and are negative [facility] Medical History (Updated 04/29/24 @ 20:43 by ABEBA Ornelas) HLD (hyperlipidemia) COPD (chronic obstructive pulmonary disease) Gout HTN (hypertension) Social History Patient Tobacco Use Status: Never used Tobacco Smoked in Last 30 Days: Yes Use of substances other than those prescribed or required for medical reasons: No Advance Directives: No Advance Directives Information Provided: Yes Meds Allergies Allergy/AdvReac Type Severity Reaction Status Date / Time No Known Allergies Allergy Verified 04/29/24 11:33 Active Medications: Current Medications Acetaminophen (Acetaminophen 325 Mg Tablet) 650 mg PO Q6H PRN PRN Reason: Pain, Mild (Pain Scale 1-3), fever or headache Calcium Carbonate (Calcium Carbonate 750 Mg Tab.Chew) 750 mg PO Q4H PRN PRN Reason: Heartburn Lactated Ringer's (Lr) 1,000 mls @ 100 mls/hr IVCONT .Q10H [facility] Stop: 04/30/24 06:14 Magnesium Hydroxide (Milk Of Magnesia 30 Ml Oral.Susp) 30 ml PO DAILY PRN PRN Reason: Constipation Melatonin (Melatonin 3 Mg Tablet) 6 mg PO BEDTIME PRN PRN Reason: Insomnia Sodium Chloride (0.9 % Sodium Chloride Flush 3 Ml Syringe) 3 ml IVFLUSH QSHIFT [facility] Home Medications ?Medication ?Instructions ?Recorded ?Confirmed ?Last Taken ?Type atorvastatin 40 mg tablet 40 mg PO DAILY 03/18/23 04/29/24 04/29/24 08:00 History gabapentin 300 mg capsule 600 mg PO BEDTIME 03/18/23 04/29/24 04/28/24 History metoprolol tartrate 25 mg tablet 25 mg PO BID 03/18/23 04/29/24 04/29/24 08:00 History aspirin 81 mg tablet,delayed 81 mg PO MOWEFR 12/01/23 04/29/24 04/28/24 History release lisinopril 10 1 tab PO DAILY 12/01/23 04/29/24 04/29/24 08:00 History mg-hydrochlorothiazide 12.5 mg tablet acetaminophen 325 mg tablet 650 mg PO DAILY PRN Pain 04/29/24 04/29/24 Unknown History albuterol sulfate 90 mcg/actuation 1 inh inhalation QID PRN Shortness 04/29/24 04/29/24 Unknown History aerosol inhaler (Ventolin HFA) Of Breath Or Wheezing azithromycin 250 mg tablet 250 mg PO DIRECTED 04/29/24 04/29/24 04/29/24 08:00 History cefpodoxime 100 mg tablet 100 mg PO BID 04/29/24 04/29/24 04/29/24 08:00 History fluticasone furoate 100 1 ea inhalation DAILY 04/29/24 04/29/24 04/29/24 08:00 History mcg-vilanterol 25 mcg/dose inhalation powder (Breo Ellipta) fluticasone propionate 50 2 spray intranasal DAILY 04/29/24 04/29/24 Unknown History mcg/actuation nasal spray,suspension gabapentin 300 mg capsule 300 mg PO DAILY 04/29/24 04/29/24 04/29/24 History methylprednisolone 4 mg tablets in See Rx Instructions .Route .COMPLEX 04/29/24 04/29/24 04/29/24 08:00 History a dose pack tramadol 50 mg tablet 50 mg PO BID PRN pain 04/29/24 04/29/24 04/29/24 History Physical Exam Vital Signs and Narrative: Vital Signs: Last Vital Signs Temp 97.7 F 04/29/24 20:08 Pulse 91 04/29/24 20:08 Resp 17 04/29/24 20:08 BP 138/67 04/29/24 20:08 Pulse Ox 97 04/29/24 20:08 O2 Del Method Room Air 04/29/24 20:08 BMI result Body Mass Index 33.4 General: AOx3, no acute distress Resp: CTA bilaterally CVS: S1, S2, RRR GI: +BS, NT, no distention Musculoskeletal: right-sided lower back and right side tenderness. Skin: Warm, dry Neuro: Cranial nerves II-XII grossly intact bilaterally. Motor grossly intact bilaterally Extremities: No edema Psych: Appropriate affect Results Labs 04/29/24 12:02 04/29/24 12:02 Labs: Laboratory Results - last 24 hr 04/29/24 04/29/24 12:02 14:48 MCV 86.7 MCH 29.9 MCHC 34.5 RDW 12.7 Plt Count 278 MPV 10.3 Immature Gran % (Auto) 0.6 H Neut % (Auto) 78.5 H Lymph % (Auto) 8.0 L Kinney % (Auto) 12.2 H Eos % (Auto) 0.3 Baso % (Auto) 0.4 Lymph # (Auto) 1.3 Kinney # (Auto) 1.9 H Eos # (Auto) 0.0 Baso # (Auto) 0.1 Abs Immat Gran (auto) 0.10 H Absolute Neuts (auto) 12.4 H Absolute Nucleated RBC 0.000 Nucleated RBC % (auto) 0.0 Smear Tech's Comments VERIFIED PT 10.9 INR 0.9 Hold Blue Top SEE NOTE Anion Gap 15 Estim Creat Clear Calc 40.3 Estimated GFR > 60 Random Glucose 124 H Calcium 10.4 H Magnesium 2.3 Total Bilirubin 0.7 Direct Bilirubin 0.3 AST 28 ALT 18 Alkaline Phosphatase 79 Troponin I High Sens 52.8 H* 62.2 H* B-Natriuretic Peptide 79 Total Protein 7.2 Albumin 4.1 Lipase 15 Stool Occult Blood POSITIVE Influenza Type A (PCR) NEGATIVE Influenza Type B (PCR) NEGATIVE RSV RNA Qual (PCR) NEGATIVE SARS-CoV-2 RNA (RT-PCR) NEGATIVE Imaging Radiologist's Impressions: Impressions Chest X-Ray 04/29/24 11:39 IMPRESSION: Chronic interstitial lung disease. Electronically signed by: Paulo Hills MD 04/29/2024 12:35 PM EST RP Abdomen/Pelvis CT 04/29/24 14:44 IMPRESSION: No acute intra-abdominal/intrapelvic abnormality. Nonobstructive right renal calculus. No evidence of bowel obstruction. Sigmoid colon diverticulosis. Fleischner guidelines were followed. Electronically signed by: Tien Hess DO 04/29/2024 04:38 PM EST RP Chest CTA 04/29/24 15:01 IMPRESSION: No pulmonary embolism is identified. No consolidation within either lung. No pleural effusion or pneumothorax. Fleischner guidelines were followed. Electronically signed by: Tien Hess DO 04/29/2024 04:57 PM EST RP Assessment and Plan (1) Lower back pain: Status: Acute Plan Pt is a 79-year-old female with a PMH significant for HTN, HLD, and COPD who presents to the ED with multiple complaints, though primarily complaining of worsening lower back pain radiating to her belly. Pt will be admitted to the hospital under observation for treatment and further evaluation of coffee-ground emesis with question of UGIB. Lower back pain Worsening since Friday, wraps around to lower abdomen Presented to [facility] ED for same complaints twice earlier in the week CTA of chest and CT of abd/pelvis negative for acute abdnormalities UA positive for amorphous urate crystals; reports recent hx of gout not on gout preventative meds IVF Will check uric acid PT consult ?Coffee ground emesis Reports 3 episodes on Friday-Friday, dark-colored stools this week Stool positive for occult blood Concerning for possible UGIB H&H stable, high-normal at 16.0/46.4 Pt given Protonix IV in the ED, will continue Antiemetics for nausea Will hold on GI consult and possible EGD for now Trend H&H, monitor symptoms closely ?Pneumonia Patient with cough, increased SOB Diagnosed with pneumonia at previous ED visit to [facility] CTA of chest negative for consolidation Continue home meds Will check viral panel Elevated troponins Initial troponin 52.8 with repeat 62.2 Patient asymptomatic, EKG without ischemic changes Likely type 2 in the setting of increased demand Continuous cardiac monitoring Leukocytosis Likely secondary to methylprednisolone use No sepsis Diarrhea Likely secondary to magnesium citrate HTN Continue metoprolol, lisinopril, hydrochlorothiazide COPD Not in acute exacerbation Continue home inhalers Peripheral neuropathy Continue gabapentin Full Code Attending:?Dr. Lopez DVT Prophylaxis: Lovenox The patient will be admitted to the hospital under observation due to multiple complaints, including lower back and abdominal pain possibly secondary to passing urate crystals, as well as reported coffee-ground emesis concerning for possible UGIB. Given that this is the patient's 3rd presentation to in ED this week for these symptoms, she will be hospitalized to trend labs and additional workup as necessary. Quality Stroke Does the patient have a stroke diagnosis?: No VTE Prior VTE?: No VTE Risk Level:: Medical - moderate - high VTE Device Contraindication: N/A - Device Ordered VTE Drug Contraindication: Treatment Not Indicated
[2024-04-29 20:36] LABS: Uric Acid 6.5 mg/dL (2.4-5.7)
[2024-04-29] MEDS: methylPREDNISolone 4 MG TABLET 8 MG PO (22:03)
[2024-04-29] MEDS: Metoprolol Tartrate 25 MG TABLET PO (22:04)
[2024-04-29] MEDS: Gabapentin 300 MG CAPSULE 600 MG PO (22:04)
[2024-04-29] MEDS: Lactated Ringers 1,000 ML 100 ML IVCONT (22:05)
[2024-04-30] VITALS (20 sets, daily range): BP systolic 148–230; BP diastolic 67–100; PULSE 56–77; RESP 14–18; TEMP 36–37.1; O2SAT 93–97; BMI 33.4
--- NOTE | 2024-04-30 01:08 | MHC.EDTECH ---
This tech took over care of patient at 0045,pt brought from the main ED to overflow,pt placed in hospital bed,vitals taken,BP is elevated 218/100,repeated 217/87,RN Windy was made aware,pt appears to be comfortable,watching TV,call naranjo within reach
[2024-04-30] MEDS: lisinopriL 10 MG TABLET PO ×2 (02:17→09:42)
[2024-04-30] MEDS: Metoprolol Tartrate 25 MG TABLET PO ×3 (02:17→20:15)
[2024-04-30] MEDS: Labetalol HCL 100 MG/20 ML VIAL IVPUSH (02:17)
--- NOTE | 2024-04-30 03:31 | PC.NURSE ---
Pt remains hypertensive, even more so after the medications were given then prior. RN confirmed the pt's elevated BP by completing a manual bp and it was 202/80. She continues to deny chest pain, dizziness, headache, visual disturbances and is resting comfortably and quietly in her bed without distress noted. She is A&Ox4, skin warm and dry and conversing with staff in full/complete sentences. Hospitalist has been made aware of the pt's elevated BP via [employer]
[2024-04-30 04:51] LABS: Hemoglobin 14.9 g/dl (12.0-16.0); Mean Corpuscular HGB Conc 34.7 g/dl (31.0-35.0); Mean Corpuscular Hemoglobin 30.2 pg (27.0-33.0); Mean Corpuscular Volume 87.2 fL (80.0-98.0); Mean Platelet Volume 10.4 fL (9.4-12.3); Platelet Count 258 X10*3/uL (160-400); Red Blood Count 4.93 X10*6/uL (4.20-5.50); Red Cell Distribution Width 12.7 % (11.0-16.0); White Blood Count 13.7 X10*3/uL (4.8-10.8)
[2024-04-30 05:06] LABS: Anion Gap 16 (12-20); Blood Urea Nitrogen 29 mg/dL (9-16); Calcium 9.3 mg/dL (8.4-10.2); Carbon Dioxide 25 mmol/L (22-29); Chloride 100 mmol/L (96-108); Creatinine Clr Calc Pharmacy 34.5; Estimated Glomerular Filt Rate 51; Glucose Random 102 mg/dL (60-115); Potassium 3.7 mmol/L (3.3-5.1); Sodium 137 mmol/L (135-145)
[2024-04-30] MEDS: hydrALAZINE HCl 20 MG/ML VIAL 10 MG IVPUSH (05:13)
--- NOTE | 2024-04-30 05:34 | MHC.EDTECH ---
Hourly rounds and vitals completed,BP is elevated 230/91,RN aware at bedside
--- NOTE | 2024-04-30 06:10 | MHC.EDTECH ---
Patient ambulated to the bathroom with a 1 assist ,patient has a steady gait,patient was given a can of gingerale and baldemar crackers.
--- NOTE | 2024-04-30 06:46 | PC.NURSE ---
RN called pharmacy regarding the pt's 0600 medication as it not available in this Pyxus or any pyxus per global find. Pharmacy confirms that they will have some load it for us. Unable to medicate at this time as medication not available
--- NOTE | 2024-04-30 07:10 | HO.PM.IMPN ---
Subjective Subjective Date of Service: 04/30/24 Interval History: f/u on back pain, coffee-ground emesis, elevated troponin i interval history: back pain is better, and has been ongoing since november no furthre blood in the stool and h/h is within normal Physical Exam Vital Signs: Vital Signs: Last Vital Signs Temp 98.6 F 04/30/24 03:15 Pulse 77 04/30/24 05:52 Resp 18 04/30/24 05:52 BP 155/68 H 04/30/24 05:52 Pulse Ox 96 04/30/24 05:52 O2 Del Method Room Air 04/30/24 05:52 BMI result Body Mass Index 33.4 Const: Other: General: AO X 3, no acute distress Resp: CTA bilateral CVS: S1,S2,RRR GI: +BS, NT, no distention Skin: No rash Neuro: motor grossly intact Psych: appropriate affect Objective Data Active Medications Acetaminophen (Acetaminophen 325 Mg Tablet) 650 mg PO Q6H PRN PRN Reason: Pain, Mild (Pain Scale 1-3), fever or headache Albuterol Sulfate (Albuterol Sulfate 90 Mcg 8 Gm Inhaler) 1 puff INHALE QID PRN PRN Reason: Shortness Of Breath Or Wheezing Atorvastatin Calcium (Atorvastatin Calcium 40 Mg Tablet) 40 mg PO DAILY [facility] Azithromycin (Azithromycin 250 Mg Tablet) 250 mg PO DAILY [facility] Calcium Carbonate (Calcium Carbonate 750 Mg Tab.Chew) 750 mg PO Q4H PRN PRN Reason: Heartburn Fluticasone Propionate (Fluticasone Propionate Nasal 16 Gm [place]) 2 spray NOSTRIL-B DAILY [facility] Fluticasone/Vilanterol (Fluticasone/Vilanterol 100/25 Blst.W.Dev) 1 puff INHALE RDAILY [facility] Gabapentin (Gabapentin 300 Mg Capsule) 300 mg PO DAILY [facility] Gabapentin (Gabapentin 300 Mg Capsule) 600 mg PO BEDTIME [facility] Last Admin: 04/29/24 22:04 Dose: 600 mg Documented By: DANTE Hydrochlorothiazide (Hydrochlorothiazide 12.5 Mg Tablet) 12.5 mg PO DAILY [facility] Lisinopril (Lisinopril 10 Mg Tablet) 10 mg PO DAILY [facility] Magnesium Hydroxide (Milk Of Magnesia 30 Ml Oral.Susp) 30 ml PO DAILY PRN PRN Reason: Constipation Melatonin (Melatonin 3 Mg Tablet) 6 mg PO BEDTIME PRN PRN Reason: Insomnia Methylprednisolone (Methylprednisolone 4 Mg Tablet) 4 mg PO QID@0600,1300,1800,2100 [facility] Stop: 04/30/24 21:01 Methylprednisolone (Methylprednisolone 4 Mg Tablet) 4 mg PO TID@0600,1300,2100 [facility] Stop: 05/01/24 21:01 Methylprednisolone (Methylprednisolone 4 Mg Tablet) 4 mg PO BID@0600,2100 [facility] Stop: 05/02/24 21:01 Methylprednisolone (Methylprednisolone 4 Mg Tablet) 4 mg PO DAILY@0600 [facility] Stop: 05/03/24 06:01 Metoprolol Tartrate (Metoprolol Tartrate 25 Mg Tablet) 25 mg PO BID [facility]; Protocol Last Admin: 04/29/24 22:04 Dose: 25 mg Documented By: DANTE Sodium Chloride (0.9 % Sodium Chloride Flush 3 Ml Syringe) [facility] Last Admin: 04/29/24 23:44 Dose: Not Given Documented By: DANTE Non-Admin Reason: IV Running Tramadol HCl (Tramadol Hcl 50 Mg Tablet) 50 mg PO BID PRN PRN Reason: Pain, Moderate(Pain Scale 4-6) Labs 04/30/24 04:07 04/30/24 04:07 Labs: Laboratory Results - last 24 hr 04/29/24 04/29/24 04/30/24 12:02 14:48 04:07 MCV 86.7 87.2 MCH 29.9 30.2 MCHC 34.5 34.7 RDW 12.7 12.7 Plt Count 278 258 MPV 10.3 10.4 Immature Gran % (Auto) 0.6 H Neut % (Auto) 78.5 H Lymph % (Auto) 8.0 L [place] % (Auto) 12.2 H Eos % (Auto) 0.3 Baso % (Auto) 0.4 Lymph # (Auto) 1.3 [place] # (Auto) 1.9 H Eos # (Auto) 0.0 Baso # (Auto) 0.1 Abs Immat Gran (auto) 0.10 H Absolute Neuts (auto) 12.4 H Absolute Nucleated RBC 0.000 0.000 Nucleated RBC % (auto) 0.0 0.0 Smear Tech's Comments VERIFIED PT 10.9 INR 0.9 Hold Blue Top SEE NOTE Anion Gap 15 16 Estim Creat Clear Calc 40.3 34.5 Estimated GFR > 60 51 Random Glucose 124 H 102 Uric Acid 6.5 H Calcium 10.4 H 9.3 D Magnesium 2.3 Total Bilirubin 0.7 Direct Bilirubin 0.3 AST 28 ALT 18 Alkaline Phosphatase 79 Troponin I High Sens 52.8 H* 62.2 H* B-Natriuretic Peptide 79 Total Protein 7.2 Albumin 4.1 Lipase 15 Stool Occult Blood POSITIVE Influenza Type A (PCR) NEGATIVE Influenza Type B (PCR) NEGATIVE RSV RNA Qual (PCR) NEGATIVE SARS-CoV-2 RNA (RT-PCR) NEGATIVE Assessment and Plan (1) Lower back pain: Status: Acute Plan 79/F with a PMH significant for HTN, HLD, and COPD who presents to the ED with multiple complaints, though primarily complaining of worsening lower back pain radiating to her belly and coffee-ground emesis Lower back pain-twice evaluated at [facility] this week, no acute finding, -symptomatic treatment -pt eval Coffee ground emesis, +occult blood, no anemia -iv ppi -gi consult if anemia worsening -follow h/h Pneumonia-diagnosed at [facility], no PNA on CT, -finish outpatient abx Elevated troponins -Initial troponin 52.8 with repeat 62.2, repeat -?type 2 vs nstemi -cardiology consult Leukocytosis d/t methylprednisolone use No sepsis Diarrhea--d/t MoM HTN Continue metoprolol, lisinopril, hydrochlorothiazide COPD Not in acute exacerbation Continue home inhalers Peripheral neuropathy Continue gabapentin Full Code DVT Prophylaxis: Lovenox need for inpt: work up for ugib Quality Stroke Does the patient have a stroke diagnosis?: No VTE Prior VTE?: No VTE Risk Level:: Medical - moderate - high VTE Device Contraindication: N/A - Device Ordered VTE Drug Contraindication: Treatment Not Indicated
[2024-04-30 07:47] LABS: C Reactive Protein 0.24 mg/dL (< or = 0.50)
[2024-04-30] MEDS: hydroCHLOROthiazide 12.5 MG TABLET PO (09:41)
[2024-04-30] MEDS: Azithromycin 250 MG TABLET PO (09:42)
[2024-04-30] MEDS: Gabapentin 300 MG CAPSULE PO (09:42)
[2024-04-30] MEDS: Atorvastatin Calcium 40 MG TABLET PO (09:42)
[2024-04-30] MEDS: methylPREDNISolone 4 MG TABLET PO ×4 (09:43→20:18)
[2024-04-30] MEDS: 0.9 % Sodium Chloride Flush 3 ML SYRINGE IVFLUSH ×3 (09:44→20:15)
[2024-04-30 10:27] LABS: Adenovirus PCR Not Detected (Not Detect.); Bordetella parapertussis PCR Not Detected (Not Detect.); Bordetella pertussis PCR Not Detected (Not Detect.); Chlamydia pneumoniae PCR Not Detected (Not Detect.); Coronavirus 229E PCR Not Detected (Not Detect.); Coronavirus HKU1 PCR Not Detected (Not Detect.); Coronavirus NL63 PCR Not Detected (Not Detect.); Coronavirus OC43 PCR Not Detected (Not Detect.); Human metapneumovirus PCR Not Detected (Not Detect.); Influenza A PCR Not Detected (Not Detect.); Influenza B PCR Not Detected (Not Detect.); Mycoplasma pneumoniae PCR Not Detected (Not Detect.); Parainfluenza 1 PCR Not Detected (Not Detect.); Parainfluenza 2 PCR Not Detected (Not Detect.); Parainfluenza 3 PCR Not Detected (Not Detect.); Parainfluenza 4 PCR Not Detected (Not Detect.); RSV PCR Not Detected (Not Detect.); Rhino/Enterovirus PCR Not Detected (Not Detect.)
[2024-04-30 11:04] LABS: SARS-CoV-2 PCR Not Detected (Not Detect.)
[2024-04-30 11:35] LABS: Erythrocyte Sedimentation Rate 11 MM/HR (0-20)
[2024-04-30] MEDS: Fluticasone Propionate Nasal 16 GM SPRAY 2 SPRAY NOSTRIL-B (11:58)
[2024-04-30 17:17] LABS: Troponin-I High Sensitivity 30.8 ng/L (<3.5-17.0)
[2024-04-30] MEDS: Gabapentin 300 MG CAPSULE 600 MG PO (20:14)
[2024-05-01] VITALS (7 sets, daily range): BP systolic 117–183; BP diastolic 57–69; PULSE 58–77; RESP 14–23; TEMP 36.1–37.3; O2SAT 92–99
--- NOTE | 2024-05-01 | ECG_ITS ---
Test Reason : elevated troponin i Blood Pressure : / mmHG Vent. Rate : 067 BPM Atrial Rate : 067 BPM P-R Int : 208 ms QRS Dur : 094 ms QT Int : 416 ms P-R-T Axes : 036 003 042 degrees QTc Int : 439 ms Normal sinus rhythm Minimal voltage criteria for LVH, may be normal variant ( [place]ison product ) Cannot rule out Inferior infarct (cited on or before 29-APR-2024) Abnormal ECG When compared with ECG of 29-APR-2024 12:44, No significant change was found Referred By: Victoriano Bright Electronically Signed By:DES NOLASCO MD
--- NOTE | 2024-05-01 | ECG_ITS ---
Test Reason : elvated troponin Blood Pressure : / mmHG Vent. Rate : 069 BPM Atrial Rate : 069 BPM P-R Int : 244 ms QRS Dur : 080 ms QT Int : 410 ms P-R-T Axes : 035 000 040 degrees QTc Int : 439 ms Sinus rhythm with 1st degree A-V block Cannot rule out Inferior infarct (cited on or before 29-APR-2024) Abnormal ECG When compared with ECG of 01-MAY-2024 07:59, [place] interval has increased Referred By: Victoriano Bright Electronically Signed By:DES NOLASCO MD
[2024-05-01] MEDS: methylPREDNISolone 4 MG TABLET PO ×3 (05:37→20:41)
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
[2024-05-01 07:31] LABS: Hematocrit 44.4 % (37.0-47.0); Hemoglobin 15.3 g/dl (12.0-16.0); Mean Corpuscular HGB Conc 34.5 g/dl (31.0-35.0); Mean Corpuscular Hemoglobin 30.4 pg (27.0-33.0); Mean Corpuscular Volume 88.3 fL (80.0-98.0); Mean Platelet Volume 10.7 fL (9.4-12.3); Platelet Count 266 X10*3/uL (160-400); Red Blood Count 5.03 X10*6/uL (4.20-5.50); Red Cell Distribution Width 12.9 % (11.0-16.0); White Blood Count 13.8 X10*3/uL (4.8-10.8)
[2024-05-01] MEDS: Fluticasone/Vilanterol 100/25 BLST.W.DEV 1 PUFF INHALE (07:56)
[2024-05-01] MEDS: lisinopriL 10 MG TABLET PO (08:09)
[2024-05-01] MEDS: Azithromycin 250 MG TABLET PO (08:09)
[2024-05-01] MEDS: hydroCHLOROthiazide 12.5 MG TABLET PO (08:09)
[2024-05-01] MEDS: Atorvastatin Calcium 40 MG TABLET PO (08:09)
[2024-05-01] MEDS: Metoprolol Tartrate 25 MG TABLET PO ×2 (08:09→20:41)
[2024-05-01] MEDS: Gabapentin 300 MG CAPSULE PO (08:09)
[2024-05-01] MEDS: 0.9 % Sodium Chloride Flush 3 ML SYRINGE IVFLUSH ×2 (08:12→22:24)
[2024-05-01] MEDS: Fluticasone Propionate Nasal 16 GM SPRAY 2 SPRAY NOSTRIL-B (08:14)
--- NOTE | 2024-05-01 10:36 | PM.CNCAR ---
History of Present Illness History of Present Illness Date of Service: 05/01/24 Requesting physician: Victoriano Bright Consult reason: troponin elevation Chief complaint: ?Coffee ground emesis Narrative: I was consulted to see Lyndsay in cardiology consultation today for abnormal troponin. Patient admitted with back pain and subsequently had coffee ground emesis and upper GI bleed. Admitted to the hospital with stable hematocrit. Did not receive any blood transfusion. Patient was subsequently had troponin done and this was slightly elevated. No significant rise and fall consistent with acute myocardial infarction. Cardiology consult was sought for troponin elevation. This morning she says she had burning chest discomfort which she gets often related to acid reflux disease. She has never had GI evaluation in the past. She has never had any cardiac issues. She says she was told on pulmonary CT scan which she gets intermittently that she might have some cardiac issues question elevated coronary calcium score. She sees education reporter Dr. Arguello. She has never had any myocardial infarction. She denies any exertional chest pain or shortness of breath. Review of Systems Constitutional: Constitutional: Reports no additional constitutional complaints Eyes: Eyes: Reports no additional eye complaints ENT: Reports system reviewed and no additional complaints, except as documented Cardiovascular: Cardiovascular: Reports chest pain at rest, Denies chest pain with activity, Denies lightheadedness, Denies Loss of Consciousness, Denies palpitations, Denies dyspnea, Denies dyspnea on exertion and Denies orthopnea Respiratory: Respiratory: Reports no additional respiratory complaints, Denies dyspnea and Denies dyspnea on exertion Genitourinary: Genitourinary: Reports no additional female genitourinary complaints Musculoskeletal: Musculoskeletal: Reports no additional musculoskeletal complaints Psychiatric: Psychiatric: Reports no additional psychiatric complaints Endocrine: Endocrine: Denies palpitations [facility] Past Medical History Medical History HLD (hyperlipidemia) COPD (chronic obstructive pulmonary disease) Gout HTN (hypertension) Social History Social History Patient Tobacco Use Status: Current everyday Tobacco user Smoked in Last 30 Days: Yes Patient Interested in Nicotine Replacement: No Patient Given Instructions on How to Stop Smoking: No Second Hand Smoke Exposure: No Use of substances other than those prescribed or required for medical reasons: No Currently Displaying Signs/Symptoms of Drug Intoxication Withdrawal: No Advance Directives: No Advance Directives Information Provided: Yes Advance Directives on File: No Nutrition Risks: No Nutritional Risk Meds Allergies Allergy/AdvReac Type Severity Reaction Status Date / Time No Known Allergies Allergy Verified 04/29/24 11:33 Active Medications: Current Medications Acetaminophen (Acetaminophen 325 Mg Tablet) 650 mg PO Q6H PRN PRN Reason: Pain, Mild (Pain Scale 1-3), fever or headache Albuterol Sulfate (Albuterol Sulfate 90 Mcg 8 Gm Inhaler) 1 puff INHALE QID PRN PRN Reason: Shortness Of Breath Or Wheezing Atorvastatin Calcium (Atorvastatin Calcium 40 Mg Tablet) 40 mg PO DAILY [facility] Last Admin: 05/01/24 08:09 Dose: 40 mg Azithromycin (Azithromycin 250 Mg Tablet) 250 mg PO DAILY [facility] Last Admin: 05/01/24 08:09 Dose: 250 mg Calcium Carbonate (Calcium Carbonate 750 Mg Tab.Chew) 750 mg PO Q4H PRN PRN Reason: Heartburn Fluticasone Propionate (Fluticasone Propionate Nasal 16 Gm [place]) 2 spray NOSTRIL-B DAILY [facility] Last Admin: 05/01/24 08:14 Dose: 2 spray Fluticasone/Vilanterol (Fluticasone/Vilanterol 100/25 Blst.W.Dev) 1 puff INHALE RDAILY [facility] Last Admin: 05/01/24 07:56 Dose: 1 puff Gabapentin (Gabapentin 300 Mg Capsule) 300 mg PO DAILY [facility] Last Admin: 05/01/24 08:09 Dose: 300 mg Gabapentin (Gabapentin 300 Mg Capsule) 600 mg PO BEDTIME [facility] Last Admin: 04/30/24 20:14 Dose: 600 mg Hydrochlorothiazide (Hydrochlorothiazide 12.5 Mg Tablet) 12.5 mg PO DAILY [facility] Last Admin: 05/01/24 08:09 Dose: 12.5 mg Lisinopril (Lisinopril 10 Mg Tablet) 10 mg PO DAILY [facility] Last Admin: 05/01/24 08:09 Dose: 10 mg Magnesium Hydroxide (Milk Of Magnesia 30 Ml Oral.Susp) 30 ml PO DAILY PRN PRN Reason: Constipation Melatonin (Melatonin 3 Mg Tablet) 6 mg PO BEDTIME PRN PRN Reason: Insomnia Methylprednisolone (Methylprednisolone 4 Mg Tablet) 4 mg PO TID@0600,1300,2100 [facility] Stop: 05/01/24 21:01 Last Admin: 05/01/24 05:37 Dose: 4 mg Methylprednisolone (Methylprednisolone 4 Mg Tablet) 4 mg PO BID@0600,2100 [facility] Stop: 05/02/24 21:01 Methylprednisolone (Methylprednisolone 4 Mg Tablet) 4 mg PO DAILY@0600 [facility] Stop: 05/03/24 06:01 Metoprolol Tartrate (Metoprolol Tartrate 25 Mg Tablet) 25 mg PO BID [facility]; Protocol Last Admin: 05/01/24 08:09 Dose: 25 mg Sodium Chloride (0.9 % Sodium Chloride Flush 3 Ml Syringe) 3 ml IVFLUSH QSHIFT [facility] Last Admin: 05/01/24 08:12 Dose: 3 ml Tramadol HCl (Tramadol Hcl 50 Mg Tablet) 50 mg PO BID PRN PRN Reason: Pain, Moderate(Pain Scale 4-6) Home Medications ?Medication ?Instructions ?Recorded ?Confirmed ?Last Taken ?Type atorvastatin 40 mg tablet 40 mg PO DAILY 03/18/23 04/29/24 04/29/24 08:00 History gabapentin 300 mg capsule 600 mg PO BEDTIME 03/18/23 04/29/24 04/28/24 History metoprolol tartrate 25 mg tablet 25 mg PO BID 03/18/23 04/29/24 04/29/24 08:00 History aspirin 81 mg tablet,delayed 81 mg PO MOWEFR 12/01/23 04/29/24 04/28/24 History release lisinopril 10 1 tab PO DAILY 12/01/23 04/29/24 04/29/24 08:00 History mg-hydrochlorothiazide 12.5 mg tablet acetaminophen 325 mg tablet 650 mg PO DAILY PRN Pain 04/29/24 04/29/24 Unknown History albuterol sulfate 90 mcg/actuation 1 inh inhalation QID PRN Shortness 04/29/24 04/29/24 Unknown History aerosol inhaler (Ventolin HFA) Of Breath Or Wheezing azithromycin 250 mg tablet 250 mg PO DIRECTED 04/29/24 04/29/24 04/29/24 08:00 History cefpodoxime 100 mg tablet 100 mg PO BID 04/29/24 04/29/24 04/29/24 08:00 History fluticasone furoate 100 1 ea inhalation DAILY 04/29/24 04/29/24 04/29/24 08:00 History mcg-vilanterol 25 mcg/dose inhalation powder (Breo Ellipta) fluticasone propionate 50 2 spray intranasal DAILY 04/29/24 04/29/24 Unknown History mcg/actuation nasal spray,suspension gabapentin 300 mg capsule 300 mg PO DAILY 04/29/24 04/29/24 04/29/24 History methylprednisolone 4 mg tablets in See Rx Instructions .Route .COMPLEX 04/29/24 04/29/24 04/29/24 08:00 History a dose pack tramadol 50 mg tablet 50 mg PO BID PRN pain 04/29/24 04/29/24 04/29/24 History Physical Exam Vital Signs: Vital Signs: Last Vital Signs Temp 97.0 F 05/01/24 07:34 Pulse 74 05/01/24 07:57 Resp 16 05/01/24 07:57 BP 117/57 L 05/01/24 07:34 Pulse Ox 96 05/01/24 07:34 O2 Del Method Room Air 05/01/24 07:34 BMI result Body Mass Index 33.4 Const: General: cooperative, comfortable, no acute distress, alert and awake Nutritional Appearance: obese Orientation/consciousness: patient oriented x3 HEENT: Head: Yes normocephalic and Yes atraumatic Neck: Neck: Yes trachea midline, Yes supple and Yes no JVD Resp: Effort & Inspection: normal respiratory effort Auscultation: clear to auscultation bilaterally Cardio: Jugular venous distension: no JVD Rhythm: regular rhythm Heart sounds: S1 normal heart sound present, S2 normal heart sound present, no click, no gallops, no murmurs and no rubs GI: Auscultation: normal bowel sounds Skin: General skin exam: no rashes or lesions noted Neuro: General: patient oriented x3 and no focal motor deficits Extrem: General: Yes no clubbing, cyanosis or edema Psych: Appearance: grossly normal Objective Labs and Meds 05/01/24 05:58 04/30/24 04:07 Lab results: Laboratory Results - last 24 hr 04/29/24 04/30/24 04/30/24 20:11 04:07 10:38 WBC RBC Hgb Hct MCV MCH MCHC RDW Plt Count MPV Absolute Nucleated RBC Nucleated RBC % (auto) ESR 11 Troponin I High Sens 37.0 H Respiratory Panel [place] See Note Adenovirus (Rapid PCR) Not Detected B.pert (TEM-PCR) Not Detected B.parapertussis DNA PCR Not Detected C. pneumoniae DNA (PCR) Not Detected Coronavirus OC43 (PCR) Not Detected Coronavirus HKU1 (PCR) Not Detected Coronavirus 229E (PCR) Not Detected Coronavirus NL63 (PCR) Not Detected Human Metapneumovir PCR Not Detected Influenza A (RT-PCR) Not Detected Influenza B (RT-PCR) Not Detected M. pneumoniae (PCR) Not Detected Parainfluenza 1 (PCR) Not Detected Parainfluenza 2 (PCR) Not Detected Parainfluenza 3 (PCR) Not Detected Parainfluenza 4 (PCR) Not Detected RSV (PCR) Not Detected Entero/Rhino (PCR) Not Detected SARS-CoV-2 RNA (RT-PCR) Not Detected 04/30/24 05/01/24 16:51 05:58 WBC 13.8 H RBC 5.03 Hgb 15.3 Hct 44.4 MCV 88.3 MCH 30.4 MCHC 34.5 RDW 12.9 Plt Count 266 MPV 10.7 Absolute Nucleated RBC 0.000 Nucleated RBC % (auto) 0.0 ESR Troponin I High Sens 30.8 H Respiratory Panel [place] Adenovirus (Rapid PCR) B.pert (TEM-PCR) B.parapertussis DNA PCR C. pneumoniae DNA (PCR) Coronavirus OC43 (PCR) Coronavirus HKU1 (PCR) Coronavirus 229E (PCR) Coronavirus NL63 (PCR) Human Metapneumovir PCR Influenza A (RT-PCR) Influenza B (RT-PCR) M. pneumoniae (PCR) Parainfluenza 1 (PCR) Parainfluenza 2 (PCR) Parainfluenza 3 (PCR) Parainfluenza 4 (PCR) RSV (PCR) Entero/Rhino (PCR) SARS-CoV-2 RNA (RT-PCR) Assessment and Plan (1) Elevated troponin: Status: Acute Elevated troponin without any significant rise and fall which would suggest NSTEMI. Most likely secondary to demand from increased stress. She has risk for underlying coronary artery disease. Her chest pain syndrome is atypical and appears to be more related to acid reflux disease. She will require GI workup as an outpatient given that she came in with coffee-ground misses as well and has longstanding history of burning chest discomfort. She has no exertional symptoms that would suggest myocardial ischemia although given her elevated troponins and risk factors will require outpatient myocardial perfusion imaging which will be pursued through her education reporter's office Dr. Arguello. Meanwhile continue all her medications. Patient can be safely discharged home. Advised to call if she has recurrent symptoms and come to the emergency room. Will sign of the case. Thank you for allowing me to partake in her care Procedures Date of Service Date of Service: 05/01/24
--- NOTE | 2024-05-01 10:58 | MHC.CM.PN ---
PT REPORTS SHE LIVES ALONE AND IS INDEPENDENT WITH CARE SHE HAS A CLEANING LADY Q FRIDAY TO ASSIST WITH HOUSEWORK SHE HAS NO DME SHE SAYS SHE HAS A HCP, COPY REQUESTED PCP: RACHNA CASILLAS OBSERVATION NOTICE DELIVERED DCP: HOME NO NEW SERVICES DAUGHTER TO TRANSPORT
[2024-05-01] MEDS: iohexoL 350 MG/ML 100 ML INFUS..BTL IV (14:47)
[2024-05-01] MEDS: ondansetron HCL 4 MG/2 ML VIAL IVPUSH (15:15)
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
[2024-05-01 15:41] LABS: INTERNATIONAL NORM RATIO 0.9 (0.9-1.1); Prothrombin Time 10.5 SEC (10.9-12.4)
--- NOTE | 2024-05-01 16:00 | PC.NURSE ---
At approx 14:30hrs, pt was in process of discharging. Daughter was here to pick her mother up to drive her home. Pt started having difficulty finding her words, and completing sentences. Neuo check done. Pt pupils equal and reactive to light. All risk control field representative and presses equal. Tongue midline. was notified and new order for CT scan stat. Pt retuned from CT and EKG was done showing Sinus rhythm with first degree block. Orders to telemetry to be placed and for pt to go up to med tele. Daughter and pt's sister aware and with pt upon arrival to tele floor.
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
[2024-05-01] MEDS: LORazepam 2 MG/ML VIAL 0.5 MG IVPUSH (17:35)
[2024-05-01] MEDS: Acetaminophen 325 MG TABLET 650 MG PO (17:36)
[2024-05-01 17:44] LABS: Glucose, Whole Blood 91 mg/dL (60-115)
[2024-05-01] MEDS: Gabapentin 300 MG CAPSULE 600 MG PO (20:41)
[2024-05-02] VITALS: BP 126/52; PULSE 77; RESP 22; TEMP 36.5; O2SAT 95
[2024-05-02 03:45] VITALS: BP 140/56; PULSE 71; RESP 18; TEMP 36.4; O2SAT 92
[2024-05-02] MEDS: methylPREDNISolone 4 MG TABLET PO (05:37)
[2024-05-02 07:54] LABS: Cholesterol 126 mg/dL (<200); HDL Cholesterol 38 mg/dL (>40); LDL Cholesterol Calculated 72 mg/dL (<100); Triglycerides 82 mg/dL (<150)
[2024-05-02 08:00] VITALS: BP 103/58; PULSE 72; RESP 16; TEMP 36.6; O2SAT 96
[2024-05-02 08:18] VITALS: PULSE 84; RESP 18; O2SAT 94
[2024-05-02] MEDS: Fluticasone/Vilanterol 100/25 BLST.W.DEV 1 PUFF INHALE (08:18)
[2024-05-02] MEDS: Atorvastatin Calcium 40 MG TABLET PO (08:50)
[2024-05-02] MEDS: Azithromycin 250 MG TABLET PO (08:50)
[2024-05-02] MEDS: Gabapentin 300 MG CAPSULE PO (08:50)
[2024-05-02] MEDS: hydroCHLOROthiazide 12.5 MG TABLET PO (08:50)
[2024-05-02] MEDS: lisinopriL 10 MG TABLET PO (08:51)
[2024-05-02] MEDS: Metoprolol Tartrate 25 MG TABLET PO (08:51)
[2024-05-02] MEDS: Fluticasone Propionate Nasal 16 GM SPRAY 2 SPRAY NOSTRIL-B (08:53)
[2024-05-02] MEDS: 0.9 % Sodium Chloride Flush 3 ML SYRINGE IVFLUSH (08:53)
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
--- NOTE | 2024-05-02 10:51 | MHC.CM.PN ---
Per UR CM, Patient has been changed from OBSERVATION to INPATIENT; CM addressed IMM with Patient at bedside, provided her with the original and a copy has been placed on the chart.
[2024-05-02 12:00] VITALS: BP 145/65; PULSE 75; RESP 16; TEMP 36.8
--- NOTE | 2024-05-02 12:02 | MHC.CM.PN ---
Patient has been medically cleared for dc to home today, [facility] and [facility] have been made aware of today's dc.
--- NOTE | 2024-05-02 12:03 | P.F2F_ITS ---
Service Date Service Date: 05/02/24 Encounter Date of encounter: 05/02/24 Reasons for Services Signs and symptoms assessed: Back, acute altereed mental status, memory issues, being work up for seizure Reason for residential: medication management and teach disease management Reason for physical therapy: home safety and mobility and therapeutic exercises Homebound: Leaving the home is medically contraindicated at this time without the asist of a device and/or another person due th the listed conditions above and below. Reason homebound: other (Back pain, pain with walking) Homebound supporting statement: homebound due to concern for possible seizure and is not advised to drive Certification: Based on the above findings, I certify that this patient is confined to the home and needs intermittent residential care, physical therapy and/or speech therapy, or continues to need occupational therapy. The patient is under my care, and I have initiated the establishment of the plan of care. The patient will be followed by a physician who will periodically review the plan of care. Time Spent With Patient Time: Total time managing care of this patient today ____ minutes.
== END 2024-05-02 15:26 | disposition home health service (06) ==
LOC: HO.ED 20:23 → HO.EDOVER 20:24 → HO.S3 04-30 11:06 → HO.IMC 05-01 15:34
PROVIDERS: Physician Assistant Medical; Admitting Provider Student in an Organized Health Care Education/Training Program; Emergency Provider Emergency Medicine; PCP Internal Medicine; Visit Provider Internal Medicine
DX: M54.50 Low back pain, unspecified (principal); R79.89 Other specified abnormal findings of blood chemistry; R53.1 Weakness; R10.31 Right lower quadrant pain; I10 Essential (primary) hypertension; E78.5 Hyperlipidemia, unspecified; D72.829 Elevated white blood cell count, unspecified; M19.90 Unspecified osteoarthritis, unspecified site; R07.9 Chest pain, unspecified; K44.9 Diaphragmatic hernia without obstruction or gangrene; K57.90 Diverticulosis of intestine, part unspecified, without perforation or abscess without bleeding; J44.9 Chronic obstructive pulmonary disease, unspecified; R11.10 Vomiting, unspecified; M10.9 Gout, unspecified; R05.9 Cough, unspecified; Z03.818 Encounter for observation for suspected exposure to other biological agents ruled out; Z79.899 Other long term (current) drug therapy
CPT/HCPCS: 0241U; 36415; 70450; 70496; 70498; 70551; 71046; 71275; 74177; 80048; 80061; 80076; 82272; 82947; 83690; 83735; 83880; 84484; 84550; 85025; 85027; 85610; 85652; 86140; 87633; 93005; 94640; 96361; 96374; 96375; 97161; 99222; 99285; J0360; J1920; J2060; J2405; J2470; J7120; Q9967

== ENCOUNTER → 2024-04-29 11:39 | Outpatient (BNV) | payer MEDICARE, SELFPAY | PROVIDERS: PCP Internal Medicine; Visit Provider Radiology Diagnostic Radiology | DX: R07.9 Chest pain, unspecified (principal) | CPT/HCPCS: 71046 ==

== ENCOUNTER → 2024-04-29 12:34 | Outpatient (BNV) | payer MEDICARE, SELFPAY | PROVIDERS: PCP Internal Medicine; Visit Provider Internal Medicine Cardiovascular Disease | DX: R94.31 Abnormal electrocardiogram [ECG] [EKG] (principal) | CPT/HCPCS: 93010 ==

== ENCOUNTER 2024-04-29 20:03 | Outpatient (BNV) | payer MEDICARE, SELFPAY | END 2024-05-01 07:59 | PROVIDERS: Admitting Provider Student in an Organized Health Care Education/Training Program; Emergency Provider Emergency Medicine; PCP Internal Medicine; Visit Provider Internal Medicine Cardiovascular Disease | DX: R94.31 Abnormal electrocardiogram [ECG] [EKG] (principal) | CPT/HCPCS: 93010 ==

== ENCOUNTER → 2024-04-29 20:03 | Outpatient (BNV) | payer MEDICARE, SELFPAY | PROVIDERS: Admitting Provider Student in an Organized Health Care Education/Training Program; Emergency Provider Emergency Medicine; PCP Internal Medicine; Visit Provider Internal Medicine Cardiovascular Disease | DX: R79.89 Other specified abnormal findings of blood chemistry (principal) | CPT/HCPCS: 99222 ==

== ENCOUNTER → 2024-04-29 20:03 | Outpatient (BNV) | payer MEDICARE, SELFPAY | PROVIDERS: Admitting Provider Student in an Organized Health Care Education/Training Program; Emergency Provider Emergency Medicine; PCP Internal Medicine; Visit Provider Psychiatry & Neurology Neurology | DX: G93.40 Encephalopathy, unspecified (principal) | CPT/HCPCS: 99222 ==

== ENCOUNTER → 2024-04-29 20:03 | Outpatient (BNV) | payer MEDICARE, SELFPAY | PROVIDERS: Admitting Provider Student in an Organized Health Care Education/Training Program; Emergency Provider Emergency Medicine; PCP Internal Medicine; Visit Provider Internal Medicine | DX: M54.50 Low back pain, unspecified (principal) | CPT/HCPCS: 99222; 99232; 99239; 99358; G0180 ==

== ENCOUNTER 2024-06-01 12:03 | Outpatient (REF) | payer MEDICARE, SELFPAY ==
--- NOTE | 2024-06-01 12:10 | EEG_ITS ---
FINDINGS: The waking background activity consists of a diffuse 5 to 6 hertz theta seen over both hemispheres, intermixed with low-voltage fast frequencies anteriorly. Occasional isolated, blunted, sharp, and slow complexes appear over both hemisphere without clear localization. Photic stimulation is without activation. Hyperventilation was omitted. IMPRESSION: This EEG is considered abnormal due to diffuse background slowing consistent with a diffuse encephalopathic process. There are some rare sharp discharges that may suggest a component of cerebral irritability. Clinical correlation is suggested. MD HENRY Roman/HAMIDA / [phone]
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
--- OUTSIDE RECORDS SUMMARY | 2024-06-02 21:04 | XMS_ITS | Clinical Summary ---
Author Organization Unknown Care Team Providers Care Basket Machine Operator Name Role Phone SONJA SUAREZ, RACHNA Unavailable Unavailable ROSARIO RN, ANNABELLE Unavailable Unavailab scout MILES LPN, CARLY Unavailable Unavail able LUIZA PRODUCTION SCHEDULER, MACI Unavailable Unavailable BENY PT, RODERICK Unavailable Unavailable Payers Payer Name Policy Type Policy Number Effective Date Expira tion Date [facility]AUTH [id number] [email or web address] [email or web address] [id number] Problems Condition Name Condition Details Condition Category Status Onset Date Resolution Date Last Treatment Date Treating Clinician Comments GASTROINTEST INAL HEMORRHAGE, UNSPECIFIED Active 2023-06 00:00: 00 LOW BACK PAIN, UNSPECIFIED Active 2023-06 00:00: 00 ABNORMAL BLOOD-GAS LEVEL Active 2023-06 00:00: 00 MIGRAINE, UNSP, NOT INTRACTABLE, WITHOUT STATUS MIGRAINOSUS Active 2023-06 00:00: 00 CHRONIC OBSTRUCTIVE PULMONARY DISEASE, UNSPECIFIED Active 06-23 00:00: 00 ESSENTIAL (PRIMARY) HYPERTENSION Active 06-23 00:00: 00 ATRIOVENTRIC ULAR BLOCK, FIRST DEGREE Active 06-23 00:00: 00 INTERSTITIAL PULMONARY DISEASE, UNSPECIFIED Active 06-23 00:00: 00 POLYNEUROPAT HY, UNSPECIFIED Active 06-23 00:00: 00 CALCULUS OF KIDNEY Active 06-23 00:00: 00 HYPERLIPIDEM IA, UNSPECIFIED Active 06-23 00:00: 00 GOUT, UNSPECIFIED Active 06-23 00:00: 00 NICOTINE DEPENDENCE, CIGARETTES, UNCOMPLICATE D Active 06-23 00:00: 00 HISTORY OF FALLING Active 06-23 00:00: 00 Allergies, Adverse Reactions, Alerts Allergy Name Allergy Type Status Severity Reaction(s) Onset Date Inactive Date Treating Clinician Comments SEASONAL AIRBORN ALLERGIES Propensity to adverse reactions Active 2023-06 10:11: 18 Medications Ordered Medication Name Filled Medication Name Start Date Stop Date Current Medication? Ordering Clinician Indication Dosage Frequency Signature (SIG) Comments Components azithromyci n 250 mg tablet 2023-06 00:00: 00 05-09 23:59 :00 No [id number] PNEUMONIA 1 tablet 2 TIMES DAILY 1 tablet 2 TIMES DAILY (route: oral) Med Classific ation: Anti-Infe ctive Agents cefpodoxime 100 mg tablet 2023-06 00:00: 00 05-08 23:59 :00 No [id number] PNEUMONIA 1 tablet 2 TIMES DAILY 1 tablet 2 TIMES DAILY (route: oral) Med Classific ation: Anti-Infe ctive Agents lisinopril 20 mg-hydrochl orothiazide 12.5 mg tablet 2023-06 00:00: 00 05-06 00:00 :00 No [id number] Unavailable Per instruc tions ONCE DAILY Per instructio ns ONCE DAILY (route: oral) Med Classific ation: Cardiovas cular Therapy Agents Breo Ellipta 100 mcg-25 mcg/dose powder for inhalation 2023-06 00:00: 00 Yes [id number] COPD 1 inhalat ion DAILY 1 inhalation DAILY (route: inhalation ) Med Classific ation: Respirato ry Therapy Agents tramadol 50 mg tablet 2023-06 00:00: 00 Yes [id number] MODERATE TO SEVERE PAIN 1 tablet 2 TIMES DAILY 1 tablet 2 TIMES DAILY (route: oral) Med Classific ation: Analgesic , Anti-infl ammatory or Antipyret ic acetaminoph en 325 mg tablet 2023-06 00:00: 00 Yes [id number] FEVER OR MILD PAIN 2 tablet EVERY 6 HOURS 2 tablet EVERY 6 HOURS (route: oral) Med Classific ation: Analgesic , Anti-infl ammatory or Antipyret ic Ativan 0.5 mg tablet 2023-06 00:00: 00 Yes [id number] NERVOUSNESS , RESTLESSNES S 1 tablet 2 TIMES DAILY 1 tablet 2 TIMES DAILY (route: oral) Med Classific ation: Central Nervous System Agents atorvastati n 40 mg tablet 2023-06 00:00: 00 Yes [id number] HIGH LIPIDS 1 tablet BEDTIME 1 tablet BEDTIME (route: oral) Med Classific ation: Cardiovas cular Therapy Agents Biofreeze (menthol) 5 % topical gel 2023-06 00:00: 00 Yes [id number] PAIN Per instruc tions 2 TIMES DAILY Per instructio ns 2 TIMES DAILY (route: topical) Med Classific ation: Dermatolo gical docusate sodium 100 mg capsule 2023-06 00:00: 00 Yes [id number] CONSTIPATIO N 1 capsule DAILY 1 capsule DAILY (route: oral) Med Classific ation: Gastroint estinal Therapy Agents fluticasone propionate 50 mcg/actuati on nasal spray,suspe nsion 2023-06 00:00: 00 Yes [id number] ALLERGIC RHINITIS 2 spray DAILY 2 spray DAILY (route: nasal) Med Classific ation: Respirato ry Therapy Agents gabapentin 300 mg capsule 2023-06 00:00: 00 Yes [id number] PAIN 1 capsule EVERY AM 1 capsule EVERY AM (route: oral) Med Classific ation: Central Nervous System Agents gabapentin 300 mg capsule 2023-06 00:00: 00 Yes [id number] PAIN 2 capsule BEDTIME 2 capsule BEDTIME (route: oral) Med Classific ation: Central Nervous System Agents lisinopril 10 mg-hydrochl orothiazide 12.5 mg tablet 2023-06 00:00: 00 Yes [id number] HIGH BLOOD PRESSURE 1 tablet DAILY 1 tablet DAILY (route: oral) Med Classific ation: Cardiovas cular Therapy Agents metoprolol tartrate 25 mg tablet 2023-06 00:00: 00 Yes [id number] IRREGULAR HEARTBEAT 1 tablet 2 TIMES DAILY 1 tablet 2 TIMES DAILY (route: oral) Med Classific ation: Cardiovas cular Therapy Agents omeprazole 20 mg capsule,del ayed release 2023-06 00:00: 00 Yes [id number] GI BLEED 1 capsule DAILY 1 capsule DAILY (route: oral) Med Classific ation: Gastroint estinal Therapy Agents sumatriptan 50 mg tablet 2023-06 00:00: 00 Yes [id number] MIGRAINE 1 tablet DAILY 1 tablet DAILY (route: oral) Med Classific ation: Central Nervous System Agents Ventolin HFA 90 mcg/actuati on aerosol inhaler 2023-06 00:00: 00 Yes [id number] SHORTNESS OF BREATH/ WHEEZING 1 puff 4 TIMES DAILY 1 puff 4 TIMES DAILY (route: inhalation ) Med Classific ation: Respirato ry Therapy Agents aspirin 81 mg tablet,yanna yed release 2023-06 00:00: 00 Yes [id number] ANTICOAGULA TION 81 mg DAILY 81 mg DAILY (route: oral) Med Classific ation: Hematolog ical Agents Vital Signs Vital Name Observation Time Observation Value Commen ts Temperature 2024-05-26 10:30:00.000 98.6 [degF] Temperature 2024-05-18 10:24:00.000 97.6 [degF] Temperature 2024-05-17 12:47:00.000 97.2 [degF] Temperature 2024-05-11 14:40:00.000 97.7 [degF] Temperature 2024-05-06 11:21:00.000 97.6 [degF] BMI (%) 2024-05-06 10:51:12.000 33 kg/m2 Height 2024-05-06 10:50:55.000 56 [in_us] Pulse 2024-05-26 10:30:00.000 78 /min Pulse 2024-05-18 10:24:00.000 72 /min Pulse 2024-05-17 12:47:00.000 63 /min Pulse 2024-05-11 14:40:00.000 76 /min Pulse 2024-05-06 11:21:00.000 68 /min O2 Saturation (%) 2024-05-26 10:32:00.000 99 % O2 Saturation (%) 2024-05-18 10:25:00.000 97 % O2 Saturation (%) 2024-05-11 14:40:00.000 97 % O2 Saturation (%) 2024-05-06 11:21:00.000 96 % Respirations 2024-05-26 10:30:00.000 18 /min Respirations 2024-05-18 10:24:00.000 18 /min Respirations 2024-05-17 12:47:00.000 18 /min Respirations 2024-05-11 14:40:00.000 18 /min Respirations 2024-05-06 11:21:00.000 18 /min Weight (lbs) 2024-05-06 10:51:12.000 149 [lb_av] Systolic Blood Pressure 2024-05-26 10:30:00.000 130 mm [Hg] Systolic Blood Pressure 2024-05-18 10:24:00.000 132 mm [Hg] Systolic Blood Pressure 2024-05-17 12:47:00.000 138 mm [Hg] Systolic Blood Pressure 2024-05-11 14:40:00.000 140 mm [Hg] Systolic Blood Pressure 2024-05-06 11:21:00.000 140 mm [Hg] Diastolic Blood Pressure 2024-05-26 10:30:00.000 68 mm [Hg] Diastolic Blood Pressure 2024-05-18 10:24:00.000 62 mm [Hg] Diastolic Blood Pressure 2024-05-17 12:47:00.000 62 mm [Hg] Diastolic Blood Pressure 2024-05-11 14:40:00.000 60 mm [Hg] Diastolic Blood Pressure 2024-05-06 11:21:00.000 60 mm [Hg] Plan of Treatment Planned Activity Planned Date Details Comments Future Scheduled Test RN TO OBSE RVE, ASSESS, EVALUATE, AND DEVELOP AN INDIVIDUALIZED PLAN OF CARE. AGENCY MAY ACCEPT ORDERS FROM CONSULTING PHYSICIANS. RN TO OBSERVE AND ASSESS, LAWN SERVICE WORKER/HUSBANDRY TECHNICIAN TO OBSERVE FOR RISK FOR FALLS AND INSTRUCT IN FALL PREVENTION, HOME SAFETY, MEDICATION MANAGEMENT, INFECTION PREVENTION, AND NUTRITION MANAGEMENT. RN/LAWN SERVICE WORKER/HUSBANDRY TECHNICIAN NURSE MAY PERFORM O2 SATURATION LEVEL ON ADMISSION AND PRN FOR RN TO ASSESS/LAWN SERVICE WORKER TO OBSERVE PATIENT, WITH NOTIFICATION TO THE PHYSICIAN IF SATURATION IS 90% IN THE ABSENCE OF MORE SPECIFIC PARAMETERS FROM THE PHYSICIAN. AGENCY MAY PERFORM A RESUMPTION OF CARE VISIT FOLLOWING ANY HOSPITAL ADMISSION. RN/LAWN SERVICE WORKER/HUSBANDRY TECHNICIAN TO MONITOR CO-MORBID CONDITIONS LISTED ON THE PLAN OF CARE AND ANY NEW CONDITIONS THAT PRESENT THEMSELVES DURING THIS EPISODE TO IDENTIFY CHANGES AND INTERVENE TO MINIMIZE COMPLICATIONS. [code = RN TO OBSERVE, ASSESS, EVALUATE, AND DEVELOP AN INDIVIDUALIZED PLAN OF CARE. AGENCY MAY ACCEPT ORDERS FROM CONSULTING PHYSICIANS. RN TO OBSERVE AND ASSESS, LAWN SERVICE WORKER/HUSBANDRY TECHNICIAN TO OBSERVE FOR RISK FOR FALLS AND INSTRUCT IN FALL PREVENTION, HOME SAFETY, MEDICATION MANAGEMENT, INFECTION PREVENTION, AND NUTRITION MANAGEMENT. RN/LAWN SERVICE WORKER/HUSBANDRY TECHNICIAN NURSE MAY PERFORM O2 SATURATION LEVEL ON ADMISSION AND PRN FOR RN TO ASSESS/LAWN SERVICE WORKER TO OBSERVE PATIENT, WITH NOTIFICATION TO THE PHYSICIAN IF SATURATION IS 90% IN THE ABSENCE OF MORE SPECIFIC PARAMETERS FROM THE PHYSICIAN. AGENCY MAY PERFORM A RESUMPTION OF CARE VISIT FOLLOWING ANY HOSPITAL ADMISSION. RN/LAWN SERVICE WORKER/HUSBANDRY TECHNICIAN TO MONITOR CO-MORBID CONDITIONS LISTED ON THE PLAN OF CARE AND ANY NEW CONDITIONS THAT PRESENT THEMSELVES DURING THIS EPISODE TO IDENTIFY CHANGES AND INTERVENE TO MINIMIZE COMPLICATIONS.] Future Scheduled Test MEDICATION MANAGEMENT; RN/LAWN SERVICE WORKER/HUSBANDRY TECHNICIAN TO REVIEW MEDICATIONS FOR INTERACTIONS, EFFECTIVENESS OF DRUG THERAPY, AND SIGNS/SYMPTOMS OF ADVERSE REACTIONS. MAY INSTRUCT AND REINFORCE MEDICATION TEACHING RELATED TO THE USE OF MEDICATIONS, DOSAGE, FREQUENCY, PURPOSE, SIDE EFFECTS, AND TO REPORT COMPLICATIONS. [code = MEDICATION MANAGEMENT; RN/LAWN SERVICE WORKER/HUSBANDRY TECHNICIAN TO REVIEW MEDICATIONS FOR INTERACTIONS, EFFECTIVENESS OF DRUG THERAPY, AND SIGNS/SYMPTOMS OF ADVERSE REACTIONS. MAY INSTRUCT AND REINFORCE MEDICATION TEACHING RELATED TO THE USE OF MEDICATIONS, DOSAGE, FREQUENCY, PURPOSE, SIDE EFFECTS, AND TO REPORT COMPLICATIONS.] Future Scheduled Test RISK FOR H OSPITALIZATION; RN TO ASSESS/TEACH, HUSBANDRY TECHNICIAN/LAWN SERVICE WORKER TO OBSERVE/TEACH PATIENT/CAREGIVER ON RISK FOR HOSPITALIZATION/EMERGENCY ROOM VISITS, TEACH SIGNS AND SYMPTOMS THAT PUT PATIENT AT RISK, WHEN TO NOTIFY NURSE/PHYSICIAN OF COMPLICATIONS/DECLINE, AND WHEN TO CALL 911. [code = RISK FOR HOSPITALIZATION; RN TO ASSESS/TEACH, HUSBANDRY TECHNICIAN/LAWN SERVICE WORKER TO OBSERVE/TEACH PATIENT/CAREGIVER ON RISK FOR HOSPITALIZATION/EMERGENCY ROOM VISITS, TEACH SIGNS AND SYMPTOMS THAT PUT PATIENT AT RISK, WHEN TO NOTIFY NURSE/PHYSICIAN OF COMPLICATIONS/DECLINE, AND WHEN TO CALL 911.] Future Scheduled Test CARDIOVASC ULAR SYSTEM; RN TO ASSESS/TEACH, LAWN SERVICE WORKER/HUSBANDRY TECHNICIAN TO OBSERVE/TEACH RELATED TO ALTERED CARDIOVASCULAR STATUS TO MINIMIZE COMPLICATIONS AND REDUCE HOSPITALIZATION. [code = CARDIOVASCULAR SYSTEM; RN TO ASSESS/TEACH, LAWN SERVICE WORKER/HUSBANDRY TECHNICIAN TO OBSERVE/TEACH RELATED TO ALTERED CARDIOVASCULAR STATUS TO MINIMIZE COMPLICATIONS AND REDUCE HOSPITALIZATION.] Future Scheduled Test HYPERTENSI ON MANAGEMENT; RN TO ASSESS AND TEACH, LAWN SERVICE WORKER/HUSBANDRY TECHNICIAN TO OBSERVE AND TEACH WARNING SIGNS AND SYMPTOMS TO AVOID HOSPITALIZATION. [code = HYPERTENSION MANAGEMENT; RN TO ASSESS AND TEACH, LAWN SERVICE WORKER/HUSBANDRY TECHNICIAN TO OBSERVE AND TEACH WARNING SIGNS AND SYMPTOMS TO AVOID HOSPITALIZATION.] Future Scheduled Test RESPIRATOR Y SYSTEM MANAGEMENT; RN TO ASSESS AND TEACH, LAWN SERVICE WORKER/HUSBANDRY TECHNICIAN TO OBSERVE AND TEACH RELATED TO ALTERED RESPIRATORY STATUS TO MINIMIZE COMPLICATIONS AND REDUCE HOSPITALIZATION. [code = RESPIRATORY SYSTEM MANAGEMENT; RN TO ASSESS AND TEACH, LAWN SERVICE WORKER/HUSBANDRY TECHNICIAN TO OBSERVE AND TEACH RELATED TO ALTERED RESPIRATORY STATUS TO MINIMIZE COMPLICATIONS AND REDUCE HOSPITALIZATION.] Future Scheduled Test COPD MANAG EMENT; RN TO ASSESS AND TEACH, LAWN SERVICE WORKER/HUSBANDRY TECHNICIAN TO OBSERVE AND TEACH SIGNS/SYMPTOMS OF COPD EXACERBATION AND PROVIDE EARLY INTERVENTIONS TO MINIMIZE RISK OF HOSPITALIZATION. RN/LAWN SERVICE WORKER/HUSBANDRY TECHNICIAN TO INSTRUCT ON SELF-CARE MANAGEMENT INCLUDING BREATHING TECHNIQUES, AIRWAY CLEARANCE, AND PROPER USE OF COPD MEDICATIONS. RN TO ASSESS AND TEACH, LAWN SERVICE WORKER/HUSBANDRY TECHNICIAN TO OBSERVE AND TEACH PATIENT/CAREGIVER ABILITY TO MONITOR AND RECORD VITAL SIGNS INCLUDING PULSE OXIMETRY AND BLOOD PRESSURE. PULSE OXIMETER AND BP MONITOR TO BE PROVIDED IF NEEDED. [code = COPD MANAGEMENT; RN TO ASSESS AND TEACH, LAWN SERVICE WORKER/HUSBANDRY TECHNICIAN TO OBSERVE AND TEACH SIGNS/SYMPTOMS OF COPD EXACERBATION AND PROVIDE EARLY INTERVENTIONS TO MINIMIZE RISK OF HOSPITALIZATION. RN/LAWN SERVICE WORKER/HUSBANDRY TECHNICIAN TO INSTRUCT ON SELF-CARE MANAGEMENT INCLUDING BREATHING TECHNIQUES, AIRWAY CLEARANCE, AND PROPER USE OF COPD MEDICATIONS. RN TO ASSESS AND TEACH, LAWN SERVICE WORKER/HUSBANDRY TECHNICIAN TO OBSERVE AND TEACH PATIENT/CAREGIVER ABILITY TO MONITOR AND RECORD VITAL SIGNS INCLUDING PULSE OXIMETRY AND BLOOD PRESSURE. PULSE OXIMETER AND BP MONITOR TO BE PROVIDED IF NEEDED.] Future Scheduled Test SKIN INTEG RITY RN TO ASSESS AND TEACH, LAWN SERVICE WORKER/HUSBANDRY TECHNICIAN TO OBSERVE AND TEACH INTEGUMENTARY STATUS TO IDENTIFY CHANGES AND INTERVENE TO MINIMIZE COMPLICATIONS. PROVIDE SKILLED TEACHING OF GENERAL WOUND AND SKIN CARE AND PREVENTION RELATED TO POTENTIAL FOR ALTERED SKIN INTEGRITY [code = SKIN INTEGRITY RN TO ASSESS AND TEACH, LAWN SERVICE WORKER/HUSBANDRY TECHNICIAN TO OBSERVE AND TEACH INTEGUMENTARY STATUS TO IDENTIFY CHANGES AND INTERVENE TO MINIMIZE COMPLICATIONS. PROVIDE SKILLED TEACHING OF GENERAL WOUND AND SKIN CARE AND PREVENTION RELATED TO POTENTIAL FOR ALTERED SKIN INTEGRITY ] Future Scheduled Test PAIN MANAG EMENT; RN TO ASSESS AND TEACH, HUSBANDRY TECHNICIAN/LAWN SERVICE WORKER TO OBSERVE AND TEACH AND PROVIDE EDUCATION ON PAIN MANAGEMENT TECHNIQUES. [code = PAIN MANAGEMENT; RN TO ASSESS AND TEACH, HUSBANDRY TECHNICIAN/LAWN SERVICE WORKER TO OBSERVE AND TEACH AND PROVIDE EDUCATION ON PAIN MANAGEMENT TECHNIQUES.] Future Scheduled Test NEUROLOGIC AL SYSTEM MANAGEMENT; RN TO ASSESS AND TEACH, HUSBANDRY TECHNICIAN/LAWN SERVICE WORKER TO OBSERVE AND TEACH RELATED TO ALTERED NEUROLOGICAL STATUS TO MINIMIZE COMPLICATIONS AND REDUCE HOSPITALIZATION. [code = NEUROLOGICAL SYSTEM MANAGEMENT; RN TO ASSESS AND TEACH, HUSBANDRY TECHNICIAN/LAWN SERVICE WORKER TO OBSERVE AND TEACH RELATED TO ALTERED NEUROLOGICAL STATUS TO MINIMIZE COMPLICATIONS AND REDUCE HOSPITALIZATION.] Future Scheduled Test GENITOURIN DAGOBERTO MANAGEMENT; RN TO ASSESS AND TEACH, LAWN SERVICE WORKER/HUSBANDRY TECHNICIAN TO OBSERVE AND TEACH RELATED TO ALTERED GENITOURINARY STATUS TO MINIMIZE COMPLICATIONS AND REDUCE HOSPITALIZATION. [code = GENITOURINARY MANAGEMENT; RN TO ASSESS AND TEACH, LAWN SERVICE WORKER/HUSBANDRY TECHNICIAN TO OBSERVE AND TEACH RELATED TO ALTERED GENITOURINARY STATUS TO MINIMIZE COMPLICATIONS AND REDUCE HOSPITALIZATION.] Future Scheduled Test URINARY IN CONTINENCE MANAGEMENT; RN TO ASSESS AND TEACH, LAWN SERVICE WORKER/LVNTO OBSERVE AND TEACH MANAGEMENT OF URINARY INCONTINENCE. TEACH/INSTRUCT ON PREVENTING INFECTION AND SKIN BREAKDOWN. RN/LAWN SERVICE WORKER/HUSBANDRY TECHNICIAN MAY INSTRUCT IN BLADDER TRAINING PROGRAM INDICATED. [code = URINARY INCONTINENCE MANAGEMENT; RN TO ASSESS AND TEACH, LAWN SERVICE WORKER/LVNTO OBSERVE AND TEACH MANAGEMENT OF URINARY INCONTINENCE. TEACH/INSTRUCT ON PREVENTING INFECTION AND SKIN BREAKDOWN. RN/LAWN SERVICE WORKER/HUSBANDRY TECHNICIAN MAY INSTRUCT IN BLADDER TRAINING PROGRAM INDICATED.] Future Scheduled Test GASTROINTE STINAL MANAGEMENT; RN TO ASSESS AND TEACH, HUSBANDRY TECHNICIAN/LAWN SERVICE WORKER TO OBSERVE AND TEACH RELATED TO ALTERED GASTROINTESTINAL STATUS TO MINIMIZE COMPLICATIONS AND REDUCE HOSPITALIZATION. [code = GASTROINTESTINAL MANAGEMENT; RN TO ASSESS AND TEACH, HUSBANDRY TECHNICIAN/LAWN SERVICE WORKER TO OBSERVE AND TEACH RELATED TO ALTERED GASTROINTESTINAL STATUS TO MINIMIZE COMPLICATIONS AND REDUCE HOSPITALIZATION.] Future Scheduled Test BOWEL OBST RUCTION MANAGEMENT; RN TO ASSESS AND TEACH, LAWN SERVICE WORKER /HUSBANDRY TECHNICIAN TO OBSERVE AND INSTRUCT PATIENT/CAREGIVER BOWEL IMPACTION CARE AND MANAGEMENT. [code = BOWEL OBSTRUCTION MANAGEMENT; RN TO ASSESS AND TEACH, LAWN SERVICE WORKER /HUSBANDRY TECHNICIAN TO OBSERVE AND INSTRUCT PATIENT/CAREGIVER BOWEL IMPACTION CARE AND MANAGEMENT.] Future Scheduled Test FALL REDUC TION MANAGEMENT; RN TO ASSESS AND TEACH, LAWN SERVICE WORKER/HUSBANDRY TECHNICIAN TO OBSERVE AND TEACH ON EDUCATION AND INTERVENTION TO IDENTIFY FALL RISK FACTORS SUCH MEDICATIONS THAT MAY CAUSE DIZZINESS, CHRONIC DISEASES, PSYCHOLOGICAL FACTORS, AND EMPOWER/EDUCATE PATIENT/CAREGIVER TO MINIMIZE FALL RISK. [code = FALL REDUCTION MANAGEMENT; RN TO ASSESS AND TEACH, LAWN SERVICE WORKER/HUSBANDRY TECHNICIAN TO OBSERVE AND TEACH ON EDUCATION AND INTERVENTION TO IDENTIFY FALL RISK FACTORS SUCH MEDICATIONS THAT MAY CAUSE DIZZINESS, CHRONIC DISEASES, PSYCHOLOGICAL FACTORS, AND EMPOWER/EDUCATE PATIENT/CAREGIVER TO MINIMIZE FALL RISK.] Future Scheduled Test RN TO ASSE SS AND TEACH, HUSBANDRY TECHNICIAN/LAWN SERVICE WORKER TO OBSERVE AND TEACH AND PROVIDE EDUCATION ON GI BLEEDING. [code = RN TO ASSESS AND TEACH, HUSBANDRY TECHNICIAN/LAWN SERVICE WORKER TO OBSERVE AND TEACH AND PROVIDE EDUCATION ON GI BLEEDING.] Goal Patient Goal - G ET APPOINTMENTS NEED, GETBACK TO NORMAL Goal Provider Goal - A PLAN OF CARE WILL BE ESTABLISHED THAT MEETS THE PATIENTS NEEDS. PATIENT WILL DEMONSTRATE OXYGEN SATURATION WITHIN NORMAL LIMITS OR PATIENTS OPTIMAL LEVEL ESTABLISHED BY THE PHYSICIAN THROUGHOUT CARE. CHANGES TO CO-MORBID CONDITIONS AND ANY NEW CONDITIONS WILL BE IDENTIFIED AND REPORTED TO THE PHYSICIAN. Goal Provider Goal - PATIENT/CAREGIVER TO VERBALIZE, AND CONSISTENTLY DEMONSTRATE EFFECTIVE, SAFE MANAGEMENT OF MEDICATION INCLUDING KNOWLEDGE OF EFFECTIVENESS, POTENTIAL SIDE EFFECTS AND DRUG REACTIONS AND WHEN TO CONTACT THE APPROPRIATE CARE PROVIDER. PATIENT/CAREGIVER WILL BE ABLE TO VERBALIZE UNDERSTANDING OF MEDICATION REGIMEN AND ACCURATELY TAKE MEDICATIONS PRESCRIBED WITHOUT ADVERSE EFFECTS BY EOE Goal Provider Goal - PATIENT/CAREGIVER WILL VERBALIZE UNDERSTANDING OF SIGNS AND SYMPTOMS THAT PUT THE PATIENT AT RISK FOR HOSPITALIZATION /EMERGENCY ROOM VISITS, WHEN TO NOTIFY NURSE/PHYSICIAN OF COMPLICATIONS/DECLINE AND WHEN TO CALL 911. Goal Provider Goal - PATIENT / CAREGIVER WILL VERBALIZE/DEMONSTRATE UNDERSTANDING OF MEASURES TO MANAGE ALTERED CARDIOVASCULAR STATUS BY EOE Goal Provider Goal - PATIENT / CAREGIVER WILL VERBALIZE/DEMONSTRATE AN ABILITY TO ADHERE TO SELF-MANAGEMENT OF HTN TO MINIMIZE COMPLICATIONS AND AVOID HOSPITALIZATION BY END OF EPISODE. Goal Provider Goal - PATIENT / CAREGIVER WILL VERBALIZE/DEMONSTRATE UNDERSTANDING OF MEASURES TO MANAGE ALTERED RESPIRATORY STATUS BY END OF EPISODE. Goal Provider Goal - PATIENT / CAREGIVER WILL VERBALIZE/DEMONSTRATE AN ABILITY TO ADHERE TO SELF-MANAGEMENT OF COPD TO MINIMIZE COMPLICATIONS AND AVOID HOSPITALIZATION BY END OF EPISODE. Goal Provider Goal - CHANGES IN SKIN INTEGRITY STATUS WILL BE IDENTIFIED AND REPORTED TO THE PHYSICIAN FOR PROMPT INTERVENTION. PATIENT / CAREGIVER WILL VERBALIZE/DEMONSTRATE ADEQUATE KNOWLEDGE OF INTEGUMENTARY STATUS AND APPROPRIATE MEASURES TO PROMOTE SKIN INTEGRITY AND PREVENT INJURY BY EOE Goal Provider Goal - PATIENT / CAREGIVER WILL VERBALIZE / DEMONSTRATE UNDERSTANDING OF PAIN CONTROL MEASURES BY EOE Goal Provider Goal - PATIENT / CAREGIVER WILL VERBALIZE/DEMONSTRATE UNDERSTANDING OF MEASURES TO MANAGE ALTERED NEUROLOGICAL STATUS BY EOE. Goal Provider Goal - PATIENT / CAREGIVER WILL VERBALIZE/DEMONSTRATE UNDERSTANDING OF MEASURES TO MANAGE ALTERED GENITOURINARY STATUS BY END OF EPISODE. Goal Provider Goal - PATIENT/CAREGIVER WILL VERBALIZE/DEMONSTRATE UNDERSTANDING OF CARE AND MANAGEMENT OF URINARY INCONTINENCE BY EOE. Goal Provider Goal - PATIENT / CAREGIVER WILL VERBALIZE/DEMONSTRATE UNDERSTANDING OF MEASURES TO MANAGE ALTERED GASTROINTESTINAL STATUS BY END OF EPISODE. Goal Provider Goal - PATIENT/CAREGIVER WILL BE ABLE TO VERBALIZE/DEMONSTRATE APPROPRIATE BOWEL OBSTRUCTION MANAGEMENT BY EOE. Goal Provider Goal - PATIENT/CAREGIVER ABLE TO IDENTIFY FALL RISK FACTORS AND IMPLEMENT STRATEGIES TO MINIMIZE FALL RISK. PATIENT/CAREGIVER WILL VERBALIZE/DEMONSTRATE AN ABILITY TO ADHERE TO FALL REDUCTION SELF-MANAGEMENT AND LIFE-STYLE CHANGES AT DISCHARGE. PERSONAL GOAL(S) STATED BY PATIENT/CAREGIVER WILL BE MET BY EOE. Goal Provider Goal - PATIENT/CAREGIVER WILL VERBALIZE/DEMONSTRATE UNDERSTANDING OF MEASURES TO MINIMIZE COMPLICATIONS AND REDUCE HOSPITALIZATION RELATED TO GI BLEEDING BY END OF EPISODE. Encounters Start Date/Time End Date/Time Encounter Type Admission Type Attending [facility] Care Department Encounter ID Discharge Date Discharge Status Discharge Condition Discharge Reason Percent Goals Met 2024-05-06 00:00:00 2024-07-04 00:00:00 Outpatient NEW ADMISSION ANNABELLE PONCE [facility] [id number]
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
--- OUTSIDE RECORDS SUMMARY | 2024-06-02 21:04 | XMS_ITS | Data Portability ---
Author Organization [facility], [address] Address [address] [place] [address] Care Team Providers Care Exchange Engineer Name Role Phone RACHNA CASILLAS Primary Care Provider Assessment No assessment recorded. Plan of Treatment Reminders Order Date Submit Date Provider Last Modified By Organization Details Last Modified Time Details Appointments None recorded. Lab None recorded. Referral None recorded. Procedures cerumen removal using irrigation (PROC) 2022 023 [email or web address] Not available 11:34:17 Surgeries None recorded. Imaging None recorded. Medication Orders clotrimazol e-betametha sone 1 %-0.05 % topical cream 2022 023 [facility], [address] [facility], [place], [address], 14:02:25 Patient TargetsNo targets recorded. Patient Instructions Encounter Date Encounter Id Patient Instructions Last Modified By Organization Details Last Modified Time 09/16/2022 [id number] - Daily cleansin g of intertriginous skin with a mild cleanser followed by drying of affected area with a co chairman on a cool setting - Aeration of affected area when feasible - Daily application of drying powders - Use of absorbent material or clothing, such as cotton or rosenberg wool, to separate skin in folds Not available 09/16/2022 14:02:15 COOL COMPRESSES, COOL SHOWERS, MAY BE SOOTHING SINCE HEAT OF ANY SOURCE SEEMS TO MAKE RASH MORE IRRITATING AVOID SCRATCHING WHICH MAY SET UP A SECONDARY INFECTION REQUIRING ADDITIONAL TREATMENT ANTIHISTAMINES MAY HELP SOME OF THE REDNESS AND ITCH (ZYRTEC, ROSA, CLARITIN) BENADRYL IS 4 HOUR ANTIHISTAMINE AND CAN TAKE AT OPPOSITE END OF DAY THE OTHER OPTIONS BUT THIS CAN MAKE YOU TIRED AVOID USING ADDITIONAL CORTISONE CREAMS ON SKIN IF YOU ARE ALREADY TAKING PREDNISONE BY MOUTH Go to the Emergency Department immediately if your symptoms worsen or if you develop new symptoms that concern you. We recommend that you follow up with your primary care physician within 1 week. Failure to follow up as recommended may result in significant adverse health consequences. NO NSAIDS LIKE IBUPROFEN WHILE ON STEROIDS/PREDNISON E. TAKE WITH FOOD, PREFERRABLY BREAKFAST MAY TALK TYLENOL ONLY Not available 09/16/2022 14:02:04 12/31/2022 [id number] earwax blockage: care instructions [email or web address] Not available 12/31/2022 14:04:40 Your left ear is now clear and the ear drum is normal. Your right canal is clear and the ear drum appears to be mildly irritated. No sign of infection or perforation of your ear drum is noted at this time. See printed instructions. Follow-up with your doctor as needed. Seek Emergency Medical evaluation for any worsening symptoms. [email or web address] Not available 12/31/2022 14:05:57 Reason for Referral None Reported. Problems Name Problem SNOMED Code Status Onset Date Resolution Date Notes Provider Name and Address Organization Details Recorded Time Osteopenia 528793588 Active 2022 Lauryn taveras, PA - [facility] 13:23:56 Hypertensive disorder 83825231 Active 2022 Lauryn taveras, PA - [facility] 13:24:11 Hypercholester olemia 66726099 Active 2022 Lauryn taveras, PA - [facility] 13:24:18 Arthritis 4407442 Active 2022 Lauryn taveras, PA - [facility] 13:24:24 Asthma 142048875 Active 2022 Lauryn taveras, PA - [facility] 13:24:33 Chronic obstructive pulmonary disease 76585985 Active 2022 Lauryn taveras PA - [facility] 3 13:24:39 Problem Notes None recorded. Procedures Surgical History Date Name Laterality Status Provider Name and Address Organization Details Recorded Time 3 Cerumen Removal by Irrigation completed Lyndsay Garrison MD [address] [place], [place] [address], [address], [place] - [facility] 12/31/2022 14:07:15 Imaging Results None recorded. Procedure Notes None recorded. Medical Equipment None Reported. Allergies No known drug allergies Medications Name Sig Start Date Stop Date Status Note LastModified by Organization Details LastModified Time clotrimazole -betamethaso ne 1 %-0.05 % topical cream APPLY TO THE AFFECTED AND SURROUNDING AREAS OF SKIN BY TOPICAL ROUTE 2 TIMES PER DAY IN THE MORNING AND EVENING FOR 2 WEEKS 2022 active Not Available Not Available Not Avai lable sumatriptan active Not Available Not A vailable Not Available meloxicam active Not Available Not Alyse ilable Not Available aspirin active Not Available Not Avail able Not Available albuterol active Not Available Not Alyse ilable Not Available calcium active Not Available Not Avail able Not Available tramadol active Not Available Not Avai lable Not Available lisinopril active Not Available Not Av ailable Not Available metoprolol succinate active Not Available Not Available No t Available gabapentin active Not Available Not Av ailable Not Available Fluzone active Not Available Not Avail able Not Available ProAir HFA active Not Available Not Av ailable Not Available hydrochlorot hiazide (bulk) active Not Available Not Available Not Available Breo Ellipta active Not Available Not Available Not Available Allergy Relief (fluticasone ) 50 mcg/actuatio n nasal spray,suspen aviva Lamoni 1 spray every day by intranasal route. active Not Available Not Available No t Available Vitals Date Recorded Body height Body mass index (BMI) Body weight Oxygen saturation Oxygen saturation in Arterial blood by Pulse oximetry Heart rate Respiratory rate Body temperature Systolic blood pressure Diastolic blood pressure Provider Name and Address Organization Details Last Updated DateTime 3 142.24 cm 34.1 kg/m2 97707.0 4 g 97 % 97 % 62 /min 18 /min 97.6 [degF] 119 mm[Hg] 54 mm[Hg] Laurynjin Raphael [facility] 3 13:30:35 Date Recorded Body height Body mass index (BMI) Body weight Respiratory rate Heart rate Oxygen saturation Oxygen saturation in Arterial blood by Pulse oximetry Body temperature Systolic blood pressure Diastolic blood pressure Provider Name and Address Organization Details Last Updated DateTime 3 142.24 cm 34.1 kg/m2 92495.0 4 g 20 /min 67 /min 97 % 97 % 97.6 [degF] 123 mm[Hg] 55 mm[Hg] Georgette Raphael [facility] 12:17:14 Social History Question Answer Notes LastModified by Organizat ion Details LastModified Time Tobacco Smoking Status Current Every Day Smoker [facility] 09/16/2022 13:25:59 What Is Your Level Of Alcohol Consumption? Occasional Special Occasions Information not available 09/16/2022 Have You Had Direct Contact, Or Contact During Intimacy, With Monkeypox Rash, Scabs, Or Body Fluids From A Person With Monkeypox? No [email or web address] Information not available 12/31/2022 How Much Tobacco Do You Smoke? 2 PPD Information not available 09/16/2022 Do You Use Any Illicit Or Recreational Drugs? No Information not available 09/16/2022 Have You Recently Traveled Abroad? No Information not available 09/16/2022 Do You Or Have You Ever Used Any Other Forms Of Tobacco Or Nicotine? No Information not available 09/16/2022 Sex: Unknown Functional Status None recorded. Mental Status None recorded. Family History Relationship Description Onset Age of this Age Resolved Age Notes LastModified by Organization Details LastModified Time Father No current problems or disability [email or web address] Not available 09/16 13:25:17 Mother No current problems or disability [email or web address] Not available 09/16 13:25:17 Medical History No medical history recorded. Gynecological History Statement/Question Response Is there any chance of ? No LMP N/A Obstetrics History GPAL:G 0 P 0 0 0 0 Immunizations Vaccine Type Date Status Note Provider Nam e and Address Organization Details Recorded Time zoster recombinant 2 completed [facility] 09/16/2022 13:20:51 zoster recombinant 2 completed Lauryn Shardatte null, PA - [facility] 09/16/2022 13:20:51 Influenza, high-dose, quadrivalent, PF 0 completed Laurynjin Rousseaufette null, PA - [facility] 09/16/2022 13:20:51 Influenza, high-dose, quadrivalent, PF 2 completed Lauryn Monfette null, PA - [facility] 09/16/2022 13:20:51 Influenza, high-dose, quadrivalent, PF 1 completed Lauryn Rousseaufette null, PA - [facility] 09/16/2022 13:20:51 COVID-19, mRNA, LNP-S, PF, 100 mcg/0.5mL dose or 50 mcg/0.25mL dose 1 completed Lauryn Rousseaufette null, PA - [facility] 09/16/2022 13:20:51 COVID-19, mRNA, LNP-S, PF, 100 mcg/0.5mL dose or 50 mcg/0.25mL dose 1 completed Lauryn Monfette null, PA - [facility] 09/16/2022 13:20:51 COVID-19, mRNA, LNP-S, PF, 100 mcg/0.5mL dose or 50 mcg/0.25mL dose 2 completed Lauryn Oneliafette null, PA - [facility] 09/16/2022 13:20:51 COVID-19, mRNA, LNP-S, PF, 100 mcg/0.5mL dose or 50 mcg/0.25mL dose 2 completed Lauryn Monfette null, PA - [facility] 09/16/2022 13:20:51 COVID-19, mRNA, LNP-S, PF, 100 mcg/0.5mL dose or 50 mcg/0.25mL dose 1 completed Lauryn Rousseaufette null, PA - [facility] 09/16/2022 13:20:51 COVID-19, mRNA, LNP-S, bivalent, PF, 50 mcg/0.5 mL or 25mcg/0.25 mL dose 2 completed Lauryn Monfette null, PA - [facility] 09/16/2022 13:20:51 pneumococcal polysaccharide PPV23 8 completed Lauryn Monfette null, PA - [facility] 09/16/2022 13:20:51 pneumococcal polysaccharide PPV23 7 completed Lauryn Monfette null, PA - [facility] 09/16/2022 13:20:51 pneumococcal polysaccharide PPV23 7 completed Lauryn Monfette null, PA - [facility] 09/16/2022 13:20:51 pneumococcal polysaccharide PPV23 2 completed Lauryn Monfette null, PA - [facility] 09/16/2022 13:20:51 Tdap 2 completed Lauryn Monfette null, PA - [facility] 09/16/2022 13:20:51 Pneumococcal conjugate PCV 13 6 completed Lauryn Monfette null, PA - [facility] 09/16/2022 13:20:51 zoster live 9 completed Lauryn Monfette null, PA - [facility] 09/16/2022 13:20:51 Influenza, high-dose, trivalent, PF 6 completed Lauryn Monfette null, PA - [facility] 09/16/2022 13:20:52 Influenza, high-dose, trivalent, PF 7 completed Lauryn Monfette null, PA - [facility] 09/16/2022 13:20:52 Influenza, high-dose, trivalent, PF 8 completed Lauryn Monfette null, PA - [facility] 09/16/2022 13:20:52 Influenza, high-dose, trivalent, PF 9 completed Lauryn Monfette null, PA - [facility] 09/16/2022 13:20:52 Influenza, high-dose, trivalent, PF 5 completed Lauryn Monfette null, PA - [facility] 09/16/2022 13:20:52 Influenza, split virus, trivalent, preservative 1 completed Lauryn Monfette null, PA - [facility] 09/16/2022 13:20:52 Influenza, split virus, trivalent, preservative 8 completed Lauryn Monfette null, PA - [facility] 09/16/2022 13:20:52 Influenza, split virus, trivalent, preservative 7 completed Lauryn Monfette null, PA - [facility] 09/16/2022 13:20:52 Influenza, split virus, trivalent, preservative 0 completed Lauryn Monfette null, PA - [facility] 09/16/2022 13:20:52 Influenza, split virus, trivalent, preservative 9 completed Lauryn Monfette null, PA - [facility] 09/16/2022 13:20:52 Influenza, split virus, trivalent, preservative 1 completed Lauryn Monfette null, PA - [facility] 09/16/2022 13:20:52 Influenza, split virus, trivalent, preservative 2 completed Lauryn Monfette null, PA - [facility] 09/16/2022 13:20:52 Novel [id number], preservative-free 9 completed Lauryn Monfette null, PA - [facility] 09/16/2022 13:20:52 Td (adult), 2 Lf tetanus toxoid, preservative free, adsorbed 6 completed Lauryn Monfette null, PA - [facility] 09/16/2022 13:20:52 Past Encounters Encounter ID Performer Location Encounter Start Date Encounter Closed Date Diagnosis/Indication Diagnosis SNOMED-CT Code Diagnosis ICD10 Code [id number] [address] [address] 03/23/2016 10:15:57 03/23/2016 10:55:32 [id number] [address] [place] [address] 09/19/2015 15:40:46 09/19/2015 16:53:42 [id number] [address] [place] [address] 08/25/2015 18:10:53 08/25/2015 18:58:27 [id number] [address] [place] [address] 08/16/2021 12:29:06 08/16/2021 13:24:11 [id number] [address] [place] [address] 06/19/2015 10:33:58 06/19/2015 11:20:37 [id number] [address] [place] [address] 10/14/2021 11:50:02 10/14/2021 14:38:13 [id number] [address] [place] [address] 11/27/2021 12:20:51 11/27/2021 13:55:02 [id number] [address] [place] [address] 05/26/2015 09:40:22 05/26/2015 11:05:49 [id number] [address] [place] [address] 04/08/2015 15:27:26 04/08/2015 16:41:48 [id number] Chad Momin [place] [address] [place] [address] 09/16/2022 10:55:14 09/16/2022 14:03:05 Candidiasis of skin 52728942 B37.2 Erythematous rash 123847 004 R21 [id number] Lyndsay Garrison MD [address] [place] [address] 12/31/2022 11:47:00 12/31/2022 14:07:56 Impacted cerumen of bilateral ears 8942024302 540530 H61.23 Health Concerns Section Related Observation LastModified by Organization Detai ls LastModified Time None Recorded Concern Status LastModified by Organization Details LastModified Time None Recorded Advance Directives Directive None Recorded Payers Encounter Date Sequence Insurance Name Policy Number Policy Joiner Covered Member ID Joiner Member ID Guarantor Name 08/16/2021 1 [facility] - MEDICARE PREFERRED (MEDICARE REPLACEMENT HMO) Lyndsay A [place] [id number] Lyndsay A Ben 10/14/2021 1 [facility] - MEDICARE PREFERRED (MEDICARE REPLACEMENT HMO) Lyndsay A Ben [id number] Lyndsay A Ben 11/27/2021 1 [facility] PL[facility] - MEDICARE PREFERRED (MEDICARE REPLACEMENT HMO) Lnydsay A [place] [id number] Lyndsay A Ben 09/16/2022 1 [facility] - MEDICARE PREFERRED (MEDICARE REPLACEMENT HMO) Lyndsay A [place] [id number] Lyndsay A Ben 12/31/2022 1 [facility] - MEDICARE PREFERRED (MEDICARE REPLACEMENT HMO) Lyndsay A [place] [id number] Lyndsay A [place] Notes Date Note Type Note Provider Name and Address Organization Details Recorded Time 3 text/html 77 year old female presented with rash bilateral armpits x 2 weeks , itchy , red and getting worse. Chad Momin NP [address] [place], [address], [place] - [facility] 09/16/2022 14:02:37 3 text/html Ear problemReported bypatient.source of patient informationInformation obtained from patient; Patient arrived at Urgent Care ambulatory Location:bilateral Quality:pain;clogged Severity:moderate Duration:3 days Context:no sick contacts; no recent swimming/water in ear; no recent air travel Modifying Factors:does not hurt to lie on, or pull on ear; does not hurt to chew Associated Symptoms:no feverNotes:77 year old female presenting for evaluation of bilateral ear popping and crackling with throbbing pain in her right ear that radiates to her right cheek and right forehead for the past 3 days. No nasal congestion. She has a mildly runny nose. No post nasal drip. No fever, chills, ear drainage, sore throat, cough, chest pain, shortness of breath or GI symptoms. Lyndsay Garrison MD [address] [place] [address] [place], [address], [place] - [facility] 12/31/2022 14:11:46 OBGyn Episode No OBEpisode recorded.
== END 2024-06-01 12:04 | disposition home or self-care (01) ==
LOC: HO.NEURO 12:03
PROVIDERS: PCP Internal Medicine; Visit Provider Psychiatry & Neurology Neurology
DX: G93.40 Encephalopathy, unspecified (principal)
CPT/HCPCS: 95816

== ENCOUNTER 2024-07-05 14:35 | Outpatient (AMB) | payer MEDICARE, SELFPAY ==
--- NOTE | 2024-07-05 14:36 | MHC.OFFVIS ---
Intake Visit Reasons: POS Stool Test Allergies No Known Allergies Allergy (Verified 07/05/24 14:36) HPI HPI POS Stool Test: Details: HPI 79 yr ols f being called for assessment, pos stool card test She had colonoscopy 10 yrs ago and was neg per report she has poor appetite and some weight loss, but ascribes to of few years back no abdo pain no rectal lbeeding no abn bowel habits ROS: Constitutional : No Weight loss, No Fever, No Chills ENT/Mouth : No sore throat, No Rhinorrhea Eyes: No Swelling, No Redness Cardiovascular : No Chest Pain, No SOB, No Edema Respiratory : No Cough, No Sputum, No Wheezing Gastrointestinal : see HPI Genitourinary : NO Dysuria, No Urinary Frequency, No Hematuria, No Urgency Musculoskeletal : No joint pain, No Myalgias, No Joint Swelling Skin : No Skin Lesions, No rash Neuro : No Weakness, No Numbness, No Dizziness, No Headache Psych : No Anxiety/Panic, No Depression Heme/Lymph: No Bruising, No Lymphadenopathy Endocrine : No Polyuria, No Polydipsia All other systems reviewed and are negative. Medical History HLD (hyperlipidemia) COPD (chronic obstructive pulmonary disease) Gout HTN (hypertension) Surgical History tonsils uterine polyp removal Family History Social History Patient Tobacco Use Status: Current everyday Tobacco user Smoked in Last 30 Days: Yes no alcohol A/P: 1/ pos stool card, discussed colonoscopy but she refused this, also does not want CT colonography PLAN: / - she is amenable to regular CT, will order with IV and PO, guillermina given her appetite and weight issues--labs ordered as well PFSH Medical History Lower back pain Diverticulosis HLD (hyperlipidemia) COPD (chronic obstructive pulmonary disease) Gout HTN (hypertension) Surgical History Hx of colonoscopy Social History Patient Tobacco Use Status: Current everyday Tobacco user Second Hand Smoke Exposure: No service: No Telehealth Telehealth Telehealth Platform: Telephone Location of provider rendering services: practice address Location of patient: address on file Patient Identification confirmed using: Name, : Yes Telehealth method: voice only Patient verbally consented to treatment: Yes Patient verbally consented to billing insurance company: Yes Patient informed of any privacy concerns related to visit: Yes Minutes spent on Phone/Video with Pt.: 7 Assessment & Plan Assessment & Plan (1) Poor appetite: Code(s): R63.0 - Anorexia Category: Medical Plan: as above Orders: Orders CT abdomen pelvis w IV con Today R63.0 - Anorexia Medications: New barium sulfate 2%(w/v) (Readi-Cat 2) 900 mL PO ONCE 900 mL 0RF Discontinued omeprazole Discontinued Reason: Patient no longer taking 20 mg PO DAILY 28 days 90 caps 0RF Coding Level of Care Code Tele New Pt Level 4 (31169) Diagnoses Poor appetite R63.0
--- OUTSIDE RECORDS SUMMARY | 2024-07-05 18:37 | XMS_ITS ---
[facility] Address [address] [place] [address] Care Team Providers Care Field Applications Specialist Name Role Phone Jeffrey Lau MD Primary Care Provider Unavailabl e Black, Uyen Unavailable [phone] Allergies Allergen (clinical drug ingredient) Drug/Non Drug [...] Problem Status W/U Status Risk Notes Problem 28430691 Essential hypertension (I10) Active confirmed Vital Signs Height 4ft 8in in 06/01/2024 Weight 144 lbs 06/01/2024 BMI 32.28 kg/m2 06/01/2024 Blood pressure systolic 130 mm Hg 06/01/20 24 Blood pressure diastolic 68 mm Hg 024 Procedures Procedure Date Ordered Date Performed Result Body Sit e 09244-JEFSGFW NAIL, 6 OR MORE 06/01/2024 N/A 61823-Dymn Destruction, 1-14 06/01/2024 N/A Encounters Encounter Location Date Provider Diagnosis [facility] [address] [address] 06/01/2024 Uyen Navas Tinea unguium B35.1 ; [...] Treatment Pending Test Test Name Order Date [id number] NAIL, 6 OR MORE 06/01/2024 34991-Fuax Destruction, 1-14 06/01/2024 Next Appt Details Follow Up: prn, Reason: Provider Name:Uyen Navas , 07/13/2024 10:00:00 AM, [address] [place] [address], [phone], Provider Name:Uyen Navas , 08/24/2024 10:15:00 AM, [address] [place] [address], [phone], Procedure Notes * Category Sub-Category Detail Notes Wart Treatment Procedure Verruca, as desc ribed in exam, were debrided to pin-point bleeding margins with sterile 15 surgical blade, silver nitrate chemocautery applied, recomm. immune-boosting meds such as zinc, recomm. follow up with topical chemosurgical agents, Pt STILLCONT, defers any other forms of tx - 30875 Debride Nail 6-10 Nail debridement Due to [...] use of a nail nipper and/or dremel-type grinder tender, to a more viable healthy nail plate [...] to maintain effectiveness in symptomatic relief - 87047 Progress Notes * Lyndsay CONTRERAS ADOB:1944 (79 yo F)Acc No.[id number]:06/01/2024 Progress Notes Patient:?Lyndsay CONTRERAS A Provider:?Uyen Navas DPM :1945???Age:79 Y???Sex:Female D ate:06/01/2024 [facility] [address] [place], [facility] Pcp:Jeffrey Lau MD Subjective: * Chief Complaints: [...] yes, walking. ?Marital status: . 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 ???Drug/Alcohol:?AUDIT-C (Standard)?Did [...] B07.0 (Primary)??? Plan: * Treatment: 2.?Tinea unguium?Procedure: 82933-NRCBTHC NAIL, 6 OR MORE * Procedures:?Debride Nail [...] use of a nail nipper and/or dremel-type grinder tender, to a more viable healthy nail plate [...] to maintain effectiveness in symptomatic relief - 72534.?Wart Treatment:?Procedure?Verruca, as described in exam, were debrided to pin-point bleeding margins with sterile 15 surgical blade, silver nitrate chemocautery applied, recomm. immune-boosting meds such as zinc, recomm. follow up with topical chemosurgical agents, Pt STILLCONT, defers any other forms of tx - 53171.? * Procedure Codes:?40538 DEBRI DE NAIL, 6 OR MORE, Modifiers: XS 91353 Wart Destruction, 1-14, Modifiers: XS * Follow Up:?prn * Images: * Sign off status: Completed true * Provider:?Uyen Navas DPM Date:?2023 Generated for Bryant smith/Yessica/eTransmitting on:?07/05/2024 05:11 PM EST History and Physical Notes * [...] person, place, and t erin Vascular DP PULSES (B): 2/4, B/L PT PULSES (B): 2/4, B/L CAPILLARY FILL TIME: immediate, all digi ts, B/L TEMPERTURE GRADIENT (C): normal, warm to cool, proximal to distal, B/L, B/L TROPHIC CONDITION-TEXTURE/ELASTICITY/TURGOR/HAIR GROWTH (B): normal, B/L PIGMENTATION: normal, B/L Nails NAILS are: elongated,overgr own,dystrophic,greater than 3mm thick,discolored and friable with crumbly malodorous subungual debris, with dull pain on palpation, 1-5 Right foot, TA, T1, T2
--- OUTSIDE RECORDS SUMMARY | 2024-07-05 18:37 | XMS_ITS ---
Author Organization [facility] Address [address] [place] [address] Care Team Providers Care Wind Turbine Sheet Metal Worker Name Role Phone Jeffrey Lau MD Primary Care Provider Unavailjeimy e Richard Navasmie Unavailable [phone] Allergies Allergen (clinical drug ingredient) Drug/Non Drug [...] Ordered Date Performed Result Body Sit e 93088-ZHKOIYN NAIL, 6 OR MORE 04/20/2024 N/A Encounters Encounter Location Date Provider Diagnosis [facility] [place] [address] [place] [address] 04/20/2024 Uyen Navas Left foot pain M79.672 and Plantar wart B07.0 Assessments Encounter Date Diagnosis (ICD Code) Assessment Notes Treatment Notes Treatment Clinical Notes Section Notes 04/20/2024 Left foot pain (ICD-10 - M79.672) 04/20/2024 Plantar wart (ICD-10 - B07.0) Plan Of Treatment Pending Test Test Name Order Date 63451-AESMCSP NAIL, 6 OR MORE 04/20/2024 Next Appt Details Follow Up: prn, Reason: Provider Name:Uyen Navas , 07/13/2024 10:00:00 AM, [facility] [address] [facility] [place] [address], Provider Name:Uyen Navas , 08/24/2024 10:15:00 AM, [facility] [address] [facility] [place], [address], Procedure Notes * Category Sub-Category Detail Notes Wart Treatment Procedure Verrucae were de brided to pin-point bleeding margins with sterile 15 surgical blade, silver nitrate chemocautery applied, recomm. immune-boosting meds such as zinc, recomm. follow up with topical chemosurgical agents, Pt defers any other forms of tx (21836) Progress Notes * Lyndsay CONTRERAS ADOB:1944 (79 yo F)Acc No.[id number]:04/20/2024 Progress Notes Patient:?Lyndsay Contreras Provider:?Uyen Navas DPM :1945???Age:79 Y???Sex:Female D ate:04/20/2024 Address:[address] [place] [address] [facility] Pcp:Jeffrey Lau MD Subjective: * Chief Complaints: [...] Pt defers any other forms of tx (40769).? * Procedure Codes:?41291 Wart Destruction, 1-14 * Follow Up:?prn * Images: * Sign off status: Completed true * Provider:?Uyen Navas DPM Date:?2023 Generated for Bryant smith/Yessica/Carlie on:?07/05/2024 05:11 PM EST History and Physical [...]
--- OUTSIDE RECORDS SUMMARY | 2024-07-05 18:37 | XMS_ITS | Data Portability ---
Author Organization [facility] [address] Address [address] [place] [address] Care Team Providers Care Milieu Counselor Name Role Phone RACHNA CASILLAS Primary Care [...] 1 %-0.05 % topical cream [address] [facility], [address] [facility], [place], [address], 14:02:25 Patient TargetsNo targets recorded. Patient Instructions Encounter Date Encounter Id Patient Instructions Last Modified By Organization Details Last Modified Time 09/16/2022 [id number] - Daily cleansin g of intertriginous skin with a mild cleanser followed by drying of affected area with a education department chair on a cool setting - Aeration of [...] TYLENOL ONLY Not available 09/16/2022 14:02:04 12/31/2022 [id number] earwax blockage: care instructions [email or web address] Not available 12/31/2022 14:04:40 Your left ear is now clear and the ear drum is normal. Your right canal is clear and the ear drum appears to be mildly irritated. No sign of infection or perforation of your ear drum is noted at this time. See printed instructions. Follow-up with your doctor as needed. Seek Emergency Medical evaluation for any worsening symptoms. Not available 12/31/2022 14:05:57 Reason for Referral None Reported. Problems Name Problem SNOMED Code Status Onset Date Resolution Date Notes Provider Name and Address Organization Details Recorded Time Osteopenia 994715881 Active 2022 Lauryn taveras, [place] - [facility] 3 13:23:56 Hypertensive disorder 55768254 Active 2022 Lauryn taveras, [place] - [facility] 3 13:24:11 Hypercholester olemia 19747188 Active 2022 Lauryn taveras, [place] - [facility] 3 13:24:18 Arthritis 8888829 Active 2022 Lauryn taveras, [place] - [facility] 3 13:24:24 Asthma 719561021 Active 2022 Lauryn taveras, [place] - [facility] 3 13:24:33 Chronic obstructive pulmonary disease 11743134 Active 2022 Lauryn taveras [place] - [facility] 3 13:24:39 Problem Notes None recorded. Procedures Surgical History Date Name Laterality Status Provider Name and Address Organization Details Recorded Time 3 Cerumen Removal by Irrigation completed Lyndsay Garrison MD [address] [place], [place] [address], [address], [place] - [facility] 12/31/2022 14:07:15 Imaging [...] ) 50 mcg/actuatio n nasal spray,suspen aviva [place] 1 spray every day by intranasal route. active Not Available Not Available No t Available Vitals Date Recorded Body height Body mass index (BMI) Body weight Oxygen saturation Oxygen saturation in Arterial blood by Pulse oximetry Heart rate Respiratory rate Body temperature Systolic blood pressure Diastolic blood pressure Provider Name and Address Organization Details Last Updated DateTime 3 142.24 cm 34.1 kg/m2 33759.0 4 g 97 % 97 % 62 [...] Updated DateTime 3 142.24 cm 34.1 kg/m2 22603.0 4 g 20 /min 67 /min 97 [...] 09/16/2022 13:20:51 zoster recombinant 2 completed Lauryn Sharadtte null, PA - [facility] 09/16/2022 13:20:51 [...] PA - [facility] 09/16/2022 13:20:52 Novel xzdeuvlrb-J0P7-89, preservative-free 9 completed Lauryn Monfette null, PA - [facility] 09/16/2022 13:20:52 Td (adult), 2 Lf tetanus toxoid, preservative free, adsorbed 6 completed Lauryn Monfette null, [place] - [facility] 09/16/2022 13:20:52 Past Encounters Encounter ID Performer Location Encounter Start Date Encounter Closed Date Diagnosis/Indication Diagnosis SNOMED-CT Code Diagnosis ICD10 Code Diagnosis Note [id number] [address] [address] 03/23/2016 10:15:57 03/23/2016 10:55:32 [id number] [facility] [facility] [place] [address] 09/19/2015 15:40:46 09/19/2015 16:53:42 [id number] [address] [place] [address] 08/25/2015 18:10:53 08/25/2015 18:58:27 [id number] [address] [place] [address] 08/16/2021 12:29:06 08/16/2021 13:24:11 [id number] [address] [place] [address] 06/19/2015 10:33:58 06/19/2015 11:20:37 [id number] [address] [place] [address] 10/14/2021 11:50:02 10/14/2021 14:38:13 [id number] [address] [place] [address] 11/27/2021 12:20:51 11/27/2021 13:55:02 [id number] [address] [place] [address] 05/26/2015 09:40:22 05/26/2015 11:05:49 [id number] [address] [place] [address] 04/08/2015 15:27:26 04/08/2015 16:41:48 [id number] Chad Momin NP [address] [place] [address] 09/16/2022 10:55:14 09/16/2022 14:03:05 Candidiasis of skin 71205337 B37.2 Erythematous rash 100139 004 R21 [id number] Lyndsay Garrison MD [address] [place] [address] 12/31/2022 11:47:00 12/31/2022 14:07:56 Impacted cerumen of bilateral ears [id number] 708750 H61.23 Health Concerns Section Related Observation LastModified by Organization Detai ls LastModified Time None Recorded Concern Status LastModified by Organization Details LastModified Time None Recorded Advance Directives Directive None Recorded Payers Encounter Date Sequence Insurance Name Policy Number Policy Joiner Covered Member ID Joiner Member ID Guarantor Name 08/16/2021 1 [facility] - MEDICARE PREFERRED (MEDICARE REPLACEMENT HMO) Lyndsay A Ben [id number] Lyndsay A Ben 10/14/2021 1 [facility] - MEDICARE PREFERRED (MEDICARE REPLACEMENT HMO) Lyndsay A Idabel [id number] Lyndsay A Ben 11/27/2021 1 [facility] - MEDICARE PREFERRED (MEDICARE REPLACEMENT HMO) Lyndsay A Idabel [id number] Lyndsay A Idabel 09/16/2022 1 [facility] - MEDICARE PREFERRED (MEDICARE REPLACEMENT HMO) Lyndsay A Ben [id number] Lyndsay A Ben 12/31/2022 1 [facility] - MEDICARE PREFERRED (MEDICARE REPLACEMENT HMO) Lyndsay A Idabel [id number] Lyndsay A Idabel Notes Date Note Type Note Provider Name and Address Organization Details Recorded Time 3 text/html 77 year old female presented with rash bilateral armpits x 2 weeks , itchy , red and getting worse. Chad Momin NP [address] [place], [address], [place] - [facility] 09/16/2022 14:02:37 3 [...] breath or GI symptoms. Lyndsay Garrison MD [address] [facility] [place], [place], [address], [place] - [facility] 12/31/2022 14:11:46 OBGyn Episode No OBEpisode recorded.
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
--- OUTSIDE RECORDS SUMMARY | 2024-07-05 18:37 | XMS_ITS ---
[facility] Address [address] [place] [address] Care Team Providers Care Field Map Technician Name Role Phone Jeffrey Lau MD Primary Care Provider Unavailjeimy e Yosef, Uyen Unavailable [phone] Allergies No Known Allergies REASON FOR VISIT [...] Ordered Date Performed Result Body Sit e 49827-ZJEDXUJ NAIL, 6 OR MORE 03/09/2024 N/A 60278-Mssh Destruction, 1-14 03/09/2024 N/A Encounters Encounter Location Date Provider Diagnosis [facility] [address] [address] 03/09/2024 Uyen Black Tinea unguium B35.1 ; [...] Treatment Pending Test Test Name Order Date [id number] NAIL, 6 OR MORE 03/09/2024 [id number]-Bvxj Destruction, 1-14 03/09/2024 Next Appt Details Follow Up: prn, Reason: Provider Name:Uyen Navas , 07/13/2024 10:00:00 AM, [address] [place] [address], [place], [address], Provider Name:Uyen Navas , 08/24/2024 10:15:00 AM, [address] [facility], [place], [address], Procedure Notes * Category Sub-Category Detail Notes Wart Treatment Procedure Verrucae were de brided to pin-point bleeding margins with sterile 15 surgical blade, silver nitrate chemocautery applied, recomm. immune-boosting meds such as zinc, recomm. follow up with topical chemosurgical agents, Pt CONT, defers any other forms of tx (26240) Debride Nail 6-10 Nail debridement Performance o f this nail treatment by a nonprofessional would put this patients foot and overall health at risk. Therefore, nail debridement was performed extensively to reduce/remove overall nail length, girth, thickness, subungual debris, and necrotic tissue, by manual and/or electrical means through the use of a nail nipper and/or dremel-type head grinder, to a more viable healthy nail plate or bed tissue 6-10. Silver nitrate used for any petechial bleeding as necessary. Definitive antifungal treatment options have been reviewed and discussed with the patient. The patient chooses, no pharmaceutical tx - 92669 Progress Notes * Lyndsay CONTRERAS ADOB:1944 (79 yo F)Acc No.[id number]:03/09/2024 Progress Notes Patient:?Manley, Lyndsay Lu Provider:?Uyen Navas DPM :1945???Age:79 Y???Sex:Female D ate:03/09/2024 [id number] Pcp:Jeffrey Lau MD Subjective: * Chief Complaints: [...] B07.0 (Primary)? Plan: * Treatment: 2.?Tinea unguium?Procedure: 91683-VEDSTAD NAIL, 6 OR MORE * Procedures:?Debride Nail 6-10:?Nail debridement?Performance of this nail treatment by a nonprofessional would put this patients foot and overall health at risk. Therefore, nail debridement was performed extensively to reduce/remove overall nail length, girth, thickness, subungual debris, and necrotic tissue, by manual and/or electrical means through the use of a nail nipper and/or dremel-type head grinder, to a more viable healthy nail plate or bed tissue 6-10. Silver nitrate used for any petechial bleeding as necessary. Definitive antifungal treatment options have been reviewed and discussed with the patient. The patient chooses, no pharmaceutical tx - 37235.?Wart Treatment:?Procedure?Verrucae were debrided to pin-point bleeding margins with sterile 15 surgical blade, silver nitrate chemocautery applied, recomm. immune-boosting meds such as zinc, recomm. follow up with topical chemosurgical agents, Pt CONT, defers any other forms of tx (77344).? * Procedure Codes:?91959 DEBRI DE NAIL, 6 OR MORE, Modifiers: XS 58594 Wart Destruction, 1-14, Modifiers: XS * Follow Up:?prn * Images: * Sign off status: Completed true * Provider:?Uyen Navas DPM Date:?2023 Generated for Bryant smith/Yessica/Carlie on:?07/05/2024 06:36 PM EST History and Physical Notes * [...]
== END 2024-07-05 15:53 | disposition home or self-care (01) ==
LOC: HO.HGI 14:35
PROVIDERS: PCP Internal Medicine; Visit Provider Internal Medicine Gastroenterology
DX: R19.5 Other fecal abnormalities (principal); R63.0 Anorexia
CPT/HCPCS: 98016

== ENCOUNTER → 2024-07-05 14:35 | Outpatient (BNVA) | payer MEDICARE, SELFPAY | PROVIDERS: PCP Internal Medicine; Visit Provider Internal Medicine Gastroenterology ==